=== PATIENT | female | born 1930 | race Caucasian/White ===

== ENCOUNTER 2016-09-05 06:59 | Emergency (ER) | payer OTHER ==
[~2016-09-05] VITALS: Ht 160 cm; Wt 66.1 kg
[~2016-09-05 06:59] MED LIST: BROM0.0911 OPR; CALCTAB5 PO; CLX40 PO; LORA10TA45 PO; MULT-506 PO; OMEP40CA PO; PRED1SUS3 OPR; TYLOTC500 PO
[2016-09-05 07:08] VITALS: TEMP 36.9; Ht 160 cm; Wt 66.1 kg
[2016-09-05 07:13] VITALS: O2SAT 97
[2016-09-05] MEDS ORDERED: SODIUM CHLORIDE 0.9% 1000ML 1,000 ML IV ONE (07:15)
--- NOTE | 2016-09-05 07:25 | EMERGENCY ROOM VISIT NOTE ---
History Report prepared by Carla: Rosana Mcleod Under the Supervision of: Dr. Zeke Mckinney M.D. First contact with patient: 07:03 Stated Complaint: NAUSEA/VOMITING/DIARRHEA History of Present Illness The patient is an 85 year old female who presents to the Emergency Room with complaints of a persistent illness that began last evening. The patient states that she receives Meals on Wheels throughout the week, and states that she ate some Peaches and Cream that she thought tasted strange. Per EMS, the patient had a very active day yesterday and then had laid down to take a nap. EMS reports that the patient woke up last evening and was feeling nauseous and weak. They note that the patient began experiencing vomiting and diarrhea persistently. The patient reports a history of MS and colon cancer. Per EMS the patient had fallen this morning while walking to her bathroom. The patient notes right foot pain due to her fall. The patient denies any fever, abdominal pain, chills, or diaphoresis. EMS reports that they gave the patient 500 mls of fluid and 4 mg of Zofran. Source of History: patient, EMS Onset: last evening Position: other (global) Quality: other (illness) Timing: other (persistent) Associated Symptoms: + diarrhea, + nausea, + vomiting, No abdominal pain, No chills, No diaphoresis, No fevers Note: Associated Symptoms: fall, right foot pain. Review of Systems All systems have been listed, reviewed, and are negative other than those previously mentioned. Please see Additional Medical History Sheet. Past Medical & Surgical Medical Problems: (1) Benign hypertension (2) Cholangitis (3) Choledocholithiasis (4) Chronic back pain (5) Gastroesophageal reflux disease (6) Multiple sclerosis (7) Pancreatitis Surgical Problems: (1) Status post cholecystectomy Family History FH: cancer Social History Smoking Status: Never Smoker Drug Use: none Marital Status: Housing Status: lives with family Occupation Status: retired Current/Historical Medications Scheduled Bromfenac Sodium (Ophth) (Bromfenac), 1 DROPS OPR BID Calcium (Caltrate), 600 MG PO QAM Citalopram (Citalopram Hydrobromide), 1 TAB PO QAM Multivitamin (Multivitamin), 1 TAB PO QAM Omeprazole (Prilosec), 40 MG PO QAM Prednisolone Acetate 1% Oph (Pred Forte 1% Oph), 1 DROP OPR BID Sulfa/Trimethoprim (Bactrim Ds 800MG/160MG), 1 TAB PO BID Scheduled PRN Acetaminophen (Tylenol), 2 TAB PO Q8H PRN for Pain Loratadine Odt (Claritin Reditab Odt), 10 MG PO DAILY PRN for ALLERGIES Ondansetron Hcl (Zofran), 4 MG PO Q8H PRN for Nausea Allergies Coded Allergies: Cat Dander (Unverified Allergy, Unknown, RUNNY NOSE; ITCHY, WATERY EYES, ) Penicillins (Unverified Allergy, Unknown, UNKNOWN, 09/05/16) Physical Exam Vital Signs Date Time Temp Pulse Resp B/P Pulse Ox O2 Delivery O2 Flow Rate FiO2 09/05/16 10:30 139/84 09/05/16 09:30 97 18 125/67 97 Room Air 09/05/16 08:36 98 19 129/ 97 Room Air 09/05/16 07:13 97 Room Air 09/05/16 07:08 101 09/05/16 07:08 36.9 104 20 161/92 97 Room Air Physical Exam GENERAL: Patient awake, alert, oriented x 3. Patient follows commands. Patient does not appear toxic. Patient is adequately hydrated and well- nourished. SKIN: No erythema, pallor, cyanosis or rash HEENT: Normal head, pupils equal, reactive to light and accommodation. Hearing aids removed, no signs of infection in the ears. Oral cavity and posterior pharynx appear normal. Neck: Without adenopathy, no neck vein distention. LUNGS: Clear to auscultation. No wheezes, no rales, no rhonchi. HEART: No murmurs. No gallops. No rubs ABDOMEN: No masses, no rebound, no hepatomegaly or splenomegaly. EXTREMITIES:Slight swelling to the lateral malleolus of the right ankle with slight tenderness. No pedal or pretibial edema. No calf or thigh tenderness. NEUROLOGIC: Cranial nerves II-XII within normal limits. No gross motor sensory function deficits. Medical Decision & Procedures ER Provider Diagnostic Interpretation: X ray results are stated below per my interpretation and the radiologist's interpretation. RIGHT ANKLE 3 VIEWS HISTORY: Right ankle pain. fell Right COMPARISON: None. FINDINGS: There is no fracture or dislocation. Mild soft tissue swelling. The bones are osteopenic. IMPRESSION: No fractures. Electronically signed by: Diego Blair M.D. 09/05/2016 7:54 AM Dictated Date/Time: 09/05/2016 7:53 AM Laboratory Results 09/05/16 06:32 09/05/16 06:32 Test 09/05/16 06:32 09/05/16 08:00 Red Blood Count 4.87 M/uL (4.2-5.4) Mean Corpuscular Volume 87.7 fL (80-100) Mean Corpuscular Hemoglobin 30.4 pg (25-34) Mean Corpuscular Hemoglobin Concent 34.7 g/dl (32-36) RDW Standard Deviation 44.1 fL (36.4-46.3) RDW Coefficient of Variation 13.7 % (11.5-14.5) Mean Platelet Volume 9.8 fL (7.4-10.4) Anion Gap 9.0 mmol/L (3-11) Est Creatinine Clear Calc Drug Dose 43.2 ml/min Estimated GFR () 70.4 Estimated GFR (Non- 60.7 BUN/Creatinine Ratio 20.5 (10-20) Calcium Level 9.3 mg/dl (8.5-10.1) Urine Color YELLOW Urine Appearance CLEAR (CLEAR) Urine pH 7.0 (4.5-7.5) Urine Specific [place] 1.015 (1.000-1.030) Urine Protein NEG (NEG) Urine Glucose (UA) NEG (NEG) Urine Ketones NEG (NEG) Urine Occult Blood 1+ (NEG) Urine Nitrite POS (NEG) Urine Bilirubin NEG (NEG) Urine Urobilinogen NEG (NEG) Urine Leukocyte Esterase SMALL (NEG) Urine WBC (Auto) 5-10 /hpf (0-5) Urine RBC (Auto) 5-10 /hpf (0-4) Urine Hyaline Casts (Auto) 1-5 /lpf (0-5) Urine Epithelial Cells (Auto) >30 /lpf (0-5) Urine Bacteria (Auto) 4+ (NEG) Laboratory results as stated above per my review. Medications Administered Medications (Trade) Dose Ordered Sig/Elisabet Route Start Time Stop Time Status Last Admin Dose Admin Sodium Chloride (Nss 1000ml) 1,000 ml @ 1,000 mls/hr Q1H ONCE IV 09/05/16 07:15 09/05/16 08:14 DC 09/05/16 07:15 1,000 MLS/HR Ondansetron HCl (Zofran Odt) 4 mg ONE ONCE SL 09/05/16 12:00 09/05/16 12:01 DC 09/05/16 11:59 4 MG ED Course 0700: Past medical records reviewed. The patient was evaluated in room A2. A complete history and physical examination was performed. 0715: Ordered Sodium Chloride 1000 ml @ 1000 mls/hr IV. 1042: I reevaluated the patient and she is resting comfortably. I discussed the exam findings and I discussed the treatment plan. She verbalized complete understanding and agreement. She is ready to go home. Medical Decision Nurses notes reviewed. Medical history sheet reviewed. Differential diagnosis includes but is not limited to: acute gastroenteritis, dehydration, metabolic disorder, right ankle sprain. Labs and urinalysis were obtained. Please see above. The patient appears to have a urinary tract infection. X-rays of the ankle do not reveal any acute fracture dislocation or subluxation. The patient was given IV fluids to rehydrate her. She felt better. The patient appears to have some viral illness associated with the nausea and vomiting. This may also be related to the urinary tract infection. The patient will be discharged with Bactrim and Zofran. Impression Primary Impression: Nausea and vomiting Additional Impressions: Urinary tract infection, Ankle sprain Scribe Attestation The scribe's documentation has been prepared under my direction and personally reviewed by me in its entirety. I confirm that the note above accurately reflects all work, treatment, procedures, and medical decision making performed by me. Departure Information Dispostion Home / Self-Care Prescriptions Ondansetron Hcl (ZOFRAN) 4 Mg Tab 4 MG PO Q8H Y for Nausea, #10 TAB Prov: Zeke Mckinney M.D. 09/05/16 Sulfa/Trimethoprim (Bactrim Ds 800MG/160MG) Tab 1 TAB PO BID for 5 Days, #10 TAB Prov: Zeke Mckinney M.D. 09/05/16 Referrals May Novak D.OAnthony (PCP) Forms HOME CARE DOCUMENTATION FORM, IMPORTANT VISIT INFORMATION Patient Instructions A Signature Page, ED UTI Cystitis Female, My [facility] Additional Instructions Take 1 tablet of Bactrim twice a day for 5 days. Drink extra fluids. Take 1 Zofran every 4 hours as needed for nausea. Follow-up with your family physician within the next 10 days. Return here sooner if your symptoms worsen.
[2016-09-05 07:28] LABS: HEMATOCRIT 42.7 % (37-47); MEAN CELL VOLUME 87.7 fL (80-100); MEAN CORPUSCULAR HEMOGLOBIN 30.4 pg (25-34); MEAN CORPUSCULAR HGB CONC 34.7 g/dl (32-36); MEAN PLATELET VOLUME 9.8 fL (7.4-10.4); PLATELET COUNT 342 K/uL (130-400); RED BLOOD COUNT 4.87 M/uL (4.2-5.4); WHITE BLOOD COUNT 15.36 K/uL (4.8-10.8)
[2016-09-05 07:41] LABS: BUN/CREATININE RATIO 20.5 (10-20); CALCIUM 9.3 mg/dl (8.5-10.1); CREATININE 0.87 mg/dl (0.60-1.20); POTASSIUM 3.5 mmol/L (3.5-5.1)
--- NOTE | 2016-09-05 07:56 | DIAGNOSTIC IMAGING REPORT ---
RIGHT ANKLE 3 VIEWS HISTORY: Right ankle pain. fell Right COMPARISON: None. FINDINGS: There is no fracture or dislocation. Mild soft tissue swelling. The bones are osteopenic. IMPRESSION: No fractures. Electronically signed by: Diego Blair M.D. 09/05/2016 7:54 AM Dictated Date/Time: 09/05/2016 7:53 AM
[2016-09-05 08:21] LABS: URINE APPEARANCE CLEAR (CLEAR); URINE BILIRUBIN NEG (NEG); URINE COLOR YELLOW; URINE EPITHELIAL CELL AUTO >30 /lpf (0-5); URINE NITRITE POS (NEG); URINE SPECIFIC GRAVITY 1.015 (1.000-1.030); UROBILINOGEN NEG (NEG); ZZUR CULT IF INDIC CLEAN CATCH YES
[2016-09-05 08:24] LABS: MANUAL MICROSCOPIC REQUIRED? NO; REVIEW REQ? NO
[2016-09-05 09:30] VITALS: PULSE 97; O2SAT 97
[2016-09-05 10:30] VITALS: BP 139/84
[2016-09-05] MEDS ORDERED: ONDA4TAB46 PO (10:37)
[2016-09-05] MEDS ORDERED: SULF800T23 PO (10:37)
[2016-09-05] MEDS ORDERED: ONDANSETRON 4MG OD TAB SL ONE (12:00)
--- NOTE | 2016-09-07 14:36 | Pharmacy Progress Note ---
ED Pharmacist Culture FollowUp Date of Service: Sep 07, 2016. Patient was sent home with a prescription for Bactrim DS 1 PO BID x 5 days, which should cover the Citrobacter freundii complex growing from the patient's URINE culture from 09/05/16. No action required.
[2016-09-24] MEDS ORDERED: NRN300 PO (13:05)
[2016-09-24] MEDS ORDERED: RXC5 PO (13:05)
[2016-09-24] MEDS ORDERED: VALA1TAB31 PO (13:05)
== END 2016-09-05 10:49 | disposition home or self-care (01) ==
LOC: EDBD 06:59 → C.EDA 07:03
DX: R11.2 Nausea with vomiting, unspecified (principal); N39.0 Urinary tract infection, site not specified; S93.401A Sprain of unspecified ligament of right ankle, initial encounter; W19.XXXA Unspecified fall, initial encounter; Y92.019 Unspecified place in single-family (private) house as the place of occurrence of the external cause; G35 Multiple sclerosis; Z85.038 Personal history of other malignant neoplasm of large intestine; I10 Essential (primary) hypertension; K21.9 Gastro-esophageal reflux disease without esophagitis; Z80.9 Family history of malignant neoplasm, unspecified; Z79.899 Other long term (current) drug therapy

== ENCOUNTER 2016-09-21 21:18 | Inpatient (IN) | payer OTHER ==
[~2016-09-21] VITALS: Ht 160 cm; Wt 63.8 kg
[~2016-09-21 21:18] MED LIST changes: +ONDA4TAB46 PO
[2016-09-21] MEDS ORDERED: CALC600T37 PO (22:04)
[2016-09-21] MEDS ORDERED: OMEP40CA41 PO (22:04)
[2016-09-21] MEDS ORDERED: CITA10TA4 PO (22:04)
[2016-09-21] MEDS ORDERED: ONDANSETRON INJ 2 MG/ML 2 ML VIAL IV STA (22:11)
[2016-09-21] MEDS ORDERED: SODIUM CHLORIDE 0.9% 1000ML 1,000 ML IV STA (22:11)
[2016-09-21] MEDS ORDERED: FENTANYL CITRATE INJ 50 MCG/1 ML 2 ML VIAL IV PRN (22:15)
--- NOTE | 2016-09-21 22:20 | EMERGENCY ROOM VISIT NOTE ---
History Report prepared by Carla: Giovani Plasencia Under the Supervision of: Dr. Taurus Guzmán D.O. First contact with patient: 21:58 Chief Complaint: NAUSEA Stated Complaint: NAUSEA, SIDE, PAIN ,WEAKNESS Nursing Triage Summary: Pt woke up with nausea. Pt stated that she has not thrown up and does not have diarrhea. Yesterday the pt had a chest xray which showed a broken rib on the right side. The pt fell 2 weeks ago and has had pain that she has been taking tylenol for with no relief. The pt stated that she cannot take the pain. Pt also states that she is not peeing and has no appetite. History of Present Illness The patient is an 85 year old female who presents to the Emergency Room with complaints of severe and worsening pain in her right side that began two weeks ago, following a fall. She has been experiencing the pain ever since the fall, but it has become unbearable over the past two days. She went to [facility] yesterday and received an x-ray of her right ribs. There was no displacement, but the physicians told her that she likely fractured some ribs. There is associated chest pain with the rib pain. She did not hit her head during the fall, and currently has no neck pain. She also complains of nausea that began this morning. She has vomited, but has had diarrhea. She has been taking Tylenol for the pain. She denies noticing any blood in her urine. Source of History: patient, family Onset: Two weeks [employer] Position: abdomen (Right Ribs) Symptom Intensity: severe Timing: worsening Associated Symptoms: + chest pain, No neck pain Review of Systems See HPI for pertinent positives & negatives. A total of 10 systems reviewed and were otherwise negative. Past Medical & Surgical Medical Problems: (1) Benign hypertension (2) Cholangitis (3) Choledocholithiasis (4) Chronic back pain (5) Gastroesophageal reflux disease (6) Multiple sclerosis (7) Pancreatitis Surgical Problems: (1) Status post cholecystectomy Family History FH: cancer Social History Smoking Status: Never Smoker Drug Use: none Marital Status: Housing Status: lives with family Occupation Status: retired Current/Historical Medications Scheduled Calcium (Calcium), 600 MG PO QAM Citalopram Hydrobromide (Citalopram Hydrobromide), 10 MG PO QAM Multivitamin (Multivitamin), 1 TAB PO QAM Omeprazole (Prilosec), 40 MG PO DAILYBB Scheduled PRN Acetaminophen (Tylenol), 2 TAB PO Q8H PRN for Pain Loratadine Odt (Claritin Reditab Odt), 10 MG PO DAILY PRN for ALLERGIES Ondansetron Hcl (Zofran), 4 MG PO Q8H PRN for Nausea Allergies Coded Allergies: Cat Dander (Unverified Allergy, Unknown, RUNNY NOSE; ITCHY, WATERY EYES, ) Penicillins (Unverified Allergy, Unknown, UNKNOWN, 09/21/16) Physical Exam Vital Signs Date Time Temp Pulse Resp B/P Pulse Ox O2 Delivery O2 Flow Rate FiO2 09/22/16 00:30 98 18 125/73 96 Room Air 09/21/16 23:05 102 18 160/110 96 Room Air 09/21/16 22:52 90 09/21/16 21:28 36.9 86 20 138/84 97 Room Air Physical Exam GENERAL: Patient is awake, alert, and somewhat anxious appearing. Uncomfortable on exam. EYES: The conjunctivae are clear. The pupils are round and reactive. EARS, NOSE, MOUTH AND THROAT: The nose is without any evidence of any deformity. Mucous membranes are moist tongue is midline NECK: The neck is nontender and supple. RESPIRATORY: Lung sounds are diminished throughout, with splinting respirations noted. Normal respiratory effort is noted there is no evidence of wheezing rhonchi or rales CARDIOVASCULAR: Regular rate and rhythm noted there no murmurs rubs or gallops normal S1 normal S2 GASTROINTESTINAL: The abdomen is soft, but mildly distended. Diffuse tenderness to palpation appreciated, with significant pain in the left lower quadrant. Bowel sounds are present in all quadrants. Abdomen is nontender BACK: No midline tenderness or or step-off noted range of motion in flexion extension as well as rotation no signs of muscle spasm noted MUSCULOSKELETAL/EXTREMITIES: There is no evidence of gross deformity full range of motion is noted in the hips and shoulders SKIN: Pedal edema bilaterally, left greater than right. Left lower extremity is warm to the touch, but there is no evidence of cellulitis noted. There is no obvious evidence of any rash. There are no petechiae, pallor or cyanosis noted. NEUROLOGIC: Patient is awake alert and oriented x3. Medical Decision & Procedures ER Provider Diagnostic Interpretation: X ray results and stated below per my interpretation and radiology interpretation. Other radiology results per my review and radiologist interpretation: CHEST ONE VIEW PORTABLE CLINICAL HISTORY: Fall. Abdominal pain. COMPARISON STUDY: Chest radiograph February 02, 2014. FINDINGS: The patient is rotated. There is no pneumothorax. A small right pleural effusion is noted with hazy right basilar opacity. Cardiac size is normal. There is no evidence of pulmonary edema. IMPRESSION: 1. No pneumothorax. 2. Small right pleural effusion with hazy right lower lung opacity. Electronically signed by: Aden Barraza M.D. 09/21/2016 10:40 PM Dictated Date/Time: 09/21/2016 10:[address] the head chest abdomen and pelvis were obtained in the emergency department. The reports reviewed. Preliminary Findings Only See Final Report For Complete Findings CT HEAD: No ICH, mass effect or skull fracture. Chronic appearing ischemic changes. Sinus disease CT CHEST With Contrast: Axial images only. There is some artifact on this study. Patient was scanned with arms down. No aortic dissection. No pneumothorax. Small to moderate-sized right pleural effusion. Appears of low density. Suspected atelectasis. Hiatal hernia. Contrast in the esophagus may represent reflux. Suspect old sternal fracture. Incidentals include thyroid nodules and left upper lobe nodule image [address] ABDOMEN & PELVIS: Axial images only There is some artifact on this study. Comparison CT abdomen and pelvis 02/02/14. No traumatic intra-abdominal or intrapelvic findings appreciated. Suspect some body wall injury/contusions. No acute fractures. Multiple incidental findings including postop changes with interval bowel resection, interval removal of biliary stent, liver and renal cysts and cholecystectomy. See final report for more detailed discussion of incidentals. Radiologist: Jonathon Vega M.D. Study ready at 00:05 and initial results transmitted at 00:58 Ultrasound of the lower extremities was obtained in the emergency department to rule out DVT. The reports reviewed. Preliminary Findings Only See Final Report For Complete Findings US VENOUS BILATERAL LOWER EXTREMITIES: Limited due to patient's swelling and pain in right lower extremity. No DVT is seen. Right calf veins not visualized. Radiologist: Jonathon Vega M.D. Study ready at 00:25 and initial results transmitted at 00:32 Laboratory Results 09/21/16 22:40 Red Blood Count 4.51, Mean Corpuscular Volume 87.8, Mean Corpuscular Hemoglobin 31.0, Mean Corpuscular Hemoglobin Concent 35.4, Mean Platelet Volume 9.1, Neutrophils (%) (Auto) 74.6, Lymphocytes (%) (Auto) 15.2, Monocytes (%) (Auto) 9.2, Eosinophils (%) (Auto) 0.6, Basophils (%) (Auto) 0.3, Neutrophils # (Auto) 5.77, Lymphocytes # (Auto) 1.18, Monocytes # (Auto) 0.71, Eosinophils # (Auto) 0.05, Basophils # (Auto) 0.02 09/21/16 22:40 Test 09/21/16 22:40 09/22/16 01:09 White Blood Count 7.74 K/uL (4.8-10.8) Red Blood Count 4.51 M/uL (4.2-5.4) Hemoglobin 14.0 g/dL (12.0-16.0) Hematocrit 39.6 % (37-47) Mean Corpuscular Volume 87.8 fL (80-100) Mean Corpuscular Hemoglobin 31.0 pg (25-34) Mean Corpuscular Hemoglobin Concent 35.4 g/dl (32-36) Platelet Count 328 K/uL (130-400) Mean Platelet Volume 9.1 fL (7.4-10.4) Neutrophils (%) (Auto) 74.6 % Lymphocytes (%) (Auto) 15.2 % Monocytes (%) (Auto) 9.2 % Eosinophils (%) (Auto) 0.6 % Basophils (%) (Auto) 0.3 % Neutrophils # (Auto) 5.77 K/uL (1.4-6.5) Lymphocytes # (Auto) 1.18 K/uL (1.2-3.4) Monocytes # (Auto) 0.71 K/uL (0.11-0.59) Eosinophils # (Auto) 0.05 K/uL (0-0.5) Basophils # (Auto) 0.02 K/uL (0-0.2) RDW Standard Deviation 46.1 fL (36.4-46.3) RDW Coefficient of Variation 14.2 % (11.5-14.5) Immature Granulocyte % (Auto) 0.1 % Immature Granulocyte # (Auto) 0.01 K/uL (0.00-0.02) Prothrombin Time 11.3 SECONDS (9.0-12.0) Prothromb Time International Ratio 1.1 (0.9-1.1) Activated Partial Thromboplast Time 21.9 SECONDS (21.0-31.0) Partial Thromboplastin Ratio 0.8 Anion Gap 13.0 mmol/L (3-11) Estimated GFR () 85.6 Estimated GFR (Non- 73.9 BUN/Creatinine Ratio 24.9 (10-20) Calcium Level 9.5 mg/dl (8.5-10.1) Magnesium Level 2.1 mg/dl (1.8-2.4) Total Bilirubin 0.4 mg/dl (0.2-1) Direct Bilirubin 0.1 mg/dl (0-0.2) Aspartate Amino Transf (AST/SGOT) 15 U/L (15-37) Alanine Aminotransferase (ALT/SGPT) 20 U/L (12-78) Alkaline Phosphatase 79 U/L (45-117) Total Creatine Kinase 82 U/L (26-192) Creatine Kinase MB 1.9 ng/ml (0.5-3.6) Creatine Kinase MB Ratio 2.3 (0-3.0) Troponin I < 0.015 ng/ml (0-0.045) Total Protein 7.1 gm/dl (6.4-8.2) Albumin 3.9 gm/dl (3.4-5.0) Lipase 131 U/L (73-393) Urine Color YELLOW Urine Appearance CLEAR (CLEAR) Urine pH 6.0 (4.5-7.5) Urine Specific [place] 1.016 (1.000-1.030) Urine Protein NEG (NEG) Urine Glucose (UA) NEG (NEG) Urine Ketones NEG (NEG) Urine Occult Blood TRACE (NEG) Urine Nitrite NEG (NEG) Urine Bilirubin NEG (NEG) Urine Urobilinogen NEG (NEG) Urine Leukocyte Esterase NEG (NEG) Urine WBC (Auto) 1-5 /hpf (0-5) Urine RBC (Auto) 0-4 /hpf (0-4) Urine Hyaline Casts (Auto) 0 /lpf (0-5) Urine Epithelial Cells (Auto) 10-20 /lpf (0-5) Urine Bacteria (Auto) NEG (NEG) Laboratory results per my review. Medications Administered Medications (Trade) Dose Ordered Sig/Elisabet Route Start Time Stop Time Status Last Admin Dose Admin Sodium Chloride (Nss 1000ml) 1,000 ml @ 125 mls/hr Q8H STAT IV 09/21/16 22:11 09/22/16 06:10 09/21/16 23:01 125 MLS/HR Fentanyl Citrate (Fentanyl Inj) 50 mcg Q1H PRN IV 09/21/16 22:15 10/05/16 22:14 09/21/16 23:03 50 MCG Ondansetron HCl (Zofran Inj) 4 mg NOW STAT IV 09/21/16 22:11 09/21/16 22:15 DC 09/21/16 23:02 4 MG ECG Indication: abdominal pain Rate (beats per minute): 97 Rhythm: normal sinus Findings: no acute ischemic change, no ectopy Comparison ECG Date: 02/03/2016 Change: no significant change ED Course 2205: The patient was evaluated in room B7. A complete history and physical examination were performed. 2211: Ordered Zofran 4 mg IV, Sodium Chloride 1000 mL @ 125 mL/hr IV. 2215: Ordered Fentanyl 50 mcg IV. 2349: I reevaluated the patient at this time, she is still experiencing her rib pain 0012: I checked on the patient at this time, she states her pain is relieved slightly. 0136: I discussed the case with Dr. Griss[facility] Hospitalist, he will evaluate the patient for further treatment. Medical Decision The patient's history was concerning for traumatic injury Differential diagnosis: Etiologies such as fracture, dislocation, intra-abdominal, pneumothorax, intrathoracic , intracranial, neurologic, as well as other traumatic pathologies were entertained. Nursing notes reviewed. The patient is an 85-year-old female who presented to the emergency department for an evaluation of right-sided rib pain and right-sided abdominal pain. The patient had a fall a few weeks ago and landed on her walker. She had continued pain ever since that time. She was seen by her primary care physician but x- rays did not show anything definite. She had significant pain on physical exam so CTs were ordered to evaluate for thoracic or intra-abdominal trauma. I discussed the patient's laboratory radiographic studies with her. She was treated with IV fluids IV pain medicine and IV antiemetics. On subsequent reevaluation she was not feeling significantly improved. I discussed her case with the on-call [facility] hospitalist group. They have agreed to evaluate the patient in the emergency department for further management and disposition. Consults Time Called: [phone] Consulting Physician: Dr. Praveena Shaver Returned Call: [phone] I discussed the case with Dr. Praveena Shaver, he will evaluate the patient for further treatment. Impression Primary Impression: Fall Additional Impressions: Contusion of right chest wall Contusion of abdominal wall Pleural effusion, right Scribe Attestation The scribe's documentation has been prepared under my direction and personally reviewed by me in its entirety. I confirm that the note above accurately reflects all work, treatment, procedures, and medical decision making performed by me. Departure Information Dispostion Being Evaluated By Hospitalist Referrals May Novak D.O. (PCP) Patient Instructions My [facility] Problem Qualifiers Primary Impression: Fall Encounter type: initial encounter Qualified Codes: W19.XXXA - Unspecified fall, initial encounter Additional Impressions: Contusion of right chest wall Encounter type: initial encounter Qualified Codes: S20.211A - Contusion of right front wall of thorax, initial encounter Contusion of abdominal wall Encounter type: initial encounter Qualified Codes: S30.1XXA - Contusion of abdominal wall, initial encounter
[2016-09-21] MEDS ORDERED: OPTIRAY 320 IV PRN (22:30)
--- NOTE | 2016-09-21 22:42 | DIAGNOSTIC IMAGING REPORT ---
CHEST ONE VIEW PORTABLE CLINICAL HISTORY: Fall. Abdominal pain. COMPARISON STUDY: Chest radiograph February 02, 2014. FINDINGS: The patient is rotated. There is no pneumothorax. A small right pleural effusion is noted with hazy right basilar opacity. Cardiac size is normal. There is no evidence of pulmonary edema. IMPRESSION: 1. No pneumothorax. 2. Small right pleural effusion with hazy right lower lung opacity. Electronically signed by: Aden Barraza M.D. 09/21/2016 10:40 PM Dictated Date/Time: 09/21/2016 10:35 PM
[2016-09-21 22:58] LABS: BASO % 0.3 %; BASO ABS # 0.02 K/uL (0-0.2); COMPLETE YES; EOS % 0.6 %; HEMATOCRIT 39.6 % (37-47); IG% 0.1 %; LYMPH % 15.2 %; LYMPH ABS # 1.18 K/uL (1.2-3.4); MEAN CELL VOLUME 87.8 fL (80-100); MEAN CORPUSCULAR HGB CONC 35.4 g/dl (32-36); MEAN PLATELET VOLUME 9.1 fL (7.4-10.4); MONO % 9.2 %; NEUT % 74.6 %; PLATELET COUNT 328 K/uL (130-400); RED BLOOD COUNT 4.51 M/uL (4.2-5.4); WHITE BLOOD COUNT 7.74 K/uL (4.8-10.8)
[2016-09-21 23:14] LABS: INR 1.1 (0.9-1.1); PARTIAL THROMBOPLASTIN RATIO 0.8; PROTHROMBIN TIME (PATIENT) 11.3 SECONDS (9.0-12.0)
[2016-09-21 23:16] LABS: ALT/SGPT 20 U/L (12-78); BLOOD UREA NITROGEN 18 mg/dl (7-18); BUN/CREATININE RATIO 24.9 (10-20); CALCIUM 9.5 mg/dl (8.5-10.1); CARBON DIOXIDE 22 mmol/L (21-32); CHLORIDE 102 mmol/L (98-107); CREATININE 0.74 mg/dl (0.60-1.20); GLUCOSE 101 mg/dl (70-99); MAGNESIUM 2.1 mg/dl (1.8-2.4); POTASSIUM 3.6 mmol/L (3.5-5.1); SODIUM 137 mmol/L (136-145)
[2016-09-21 23:20] LABS: ALKALINE PHOSPHATASE 79 U/L (45-117); AST/SGOT 15 U/L (15-37); CKMB/CK RATIO 2.3 (0-3.0)
[2016-09-22 01:25] LABS: URINE APPEARANCE CLEAR (CLEAR); URINE BILIRUBIN NEG (NEG); URINE COLOR YELLOW; URINE NITRITE NEG (NEG); URINE SPECIFIC GRAVITY 1.016 (1.000-1.030); UROBILINOGEN NEG (NEG)
[2016-09-22 01:27] LABS: MANUAL MICROSCOPIC REQUIRED? NO; REVIEW REQ? NO
[2016-09-22] MEDS ORDERED: ACETAMINOPHEN 325 MG TAB PO PRN (02:45)
[2016-09-22 03:36] VITALS: O2SAT 95
[2016-09-22 04:05] VITALS: Ht 160 cm; Wt 63.8 kg
[2016-09-22 04:15] VITALS: BP 152/78; PULSE 103; TEMP 36.9; O2SAT 96
[2016-09-22] MEDS ORDERED: LORATADINE 10 MG TAB PO PRN (05:45)
--- NOTE | 2016-09-22 06:15 | History and Physical ---
History & Physical Date & Time of Service: Sep 22, 2016 at ~ 02:30 . Chief Complaint: chest pain . Primary Care Physician: May Novak D.O. . History of Present Illness Source: patient, clinic records, hospital records 85 YO female followed by Dr. May Novak. History of colon Ca, multiple sclerosis, and other problems noted below. Her about 6 months ago. She has been able to stay in her home despite her disabilities related to her MS. About 2 weeks she developed diarrhea, generalized weakness, and fell. She suffered right foot pain secondary to the fall and was evaluated in the ED. No other apparent injuries. X-rays of right foot and ankle did not show any fractures or dislocations. Seen in clinic on 09/17 for pain and swelling of her left foot. X-rays of left foot demonstrated fractures of the proximal phalanges of the 2nd and 3rd toes as well as fracture of the the metatarsal. Developed right-sided lower chest / upper abdominal pain after the fall, but it worsened several days ago. Also noted pain and swelling of her left foot. Chest pain worse with movement of deep inspirations; it did not radiate. Intensity of pain described as severe. She tried Tylenol at home without relief. [place] somewhat SOB. No associated fever or cough. Seen in clinic on 09/20; X-rays of ribs did not reveal any fractures. . Past Medical/Surgical History Chronic Medical Problems: (1) Benign hypertension Status: Chronic (4) Chronic back pain Status: Chronic (5) Gastroesophageal reflux disease Status: Chronic (6) History of cholelithiasis Status: Chronic (7) History of colon cancer Permanent Comment: diagnosed 2014, s/p resection Status: Chronic (8) History of pancreatitis Status: Chronic (9) Multiple sclerosis Status: Chronic Surgical Problems: (1) Status post cholecystectomy Status: Chronic (2) Status post partial resection of colon Permanent Comment: colon Ca, s/p resection 2014 Status: Chronic . Family History SON FH: cancer (? primary) Social History Smoking Status: Never Smoker Drug Use: none Marital Status: , Occupational Status: retired Immunizations History of Influenza Vaccine: Yes History of Tetanus Vaccine?: No History of Pneumococcal: Yes Pneumococcal Date: Dec 13, 2012 History of Hepatitis B Vaccine: No Multi-Drug Resistant Organisms History of MDRO: No Allergies Coded Allergies: Cat Dander (Unverified Allergy, Unknown, RUNNY NOSE; ITCHY, WATERY EYES, ) Penicillins (Unverified Allergy, Unknown, UNKNOWN, 09/21/16) Home Medications Scheduled Calcium (Calcium), 600 MG PO QAM Citalopram Hydrobromide (Citalopram Hydrobromide), 10 MG PO QAM Multivitamin (Multivitamin), 1 TAB PO QAM Omeprazole (Prilosec), 40 MG PO DAILYBB Scheduled PRN Acetaminophen (Tylenol), 2 TAB PO Q8H PRN for Pain Loratadine Odt (Claritin Reditab Odt), 10 MG PO DAILY PRN for ALLERGIES Ondansetron Hcl (Zofran), 4 MG PO Q8H PRN for Nausea Review of Systems Constitutional: No chills, No fever, No weight loss Eyes: No diplopia, No worsening of vision ENT: + hearing loss, + nasal symptoms Respiratory: + problem reported (as noted above) Cardiovascular: + problem reported (no anginal symptoms), No edema Abdomen: + nausea, No GI bleeding, No constipation, No diarrhea, No pain, No vomiting Musculoskeletal: + joint pain Genitourinary - Female: + urinary incontinence, No dysuria, No hematuria Neurologic: + weakness (chronic lower extremity weakness due to MS) Endocrine: No excessive thirst, No excessive urination Hematologic / Lymphatic: No abnormal bleeding/bruising, No swollen lymph nodes Integumentary: + itch, No new/changing skin lesions, No rash Allergic / Immunologic: + pet sensitivities Physical Exam Vital Signs Date Time Temp Pulse Resp B/P Pulse Ox O2 Delivery O2 Flow Rate FiO2 09/22/16 04:15 36.9 103 16 152/78 96 Room Air 09/22/16 04:05 Room Air 09/22/16 04:05 Room Air 09/22/16 03:36 100 18 161/106 95 Room Air 09/22/16 02:18 95 18 149/86 96 Room Air 09/22/16 00:30 98 18 125/73 96 Room Air 09/21/16 23:05 102 18 160/110 96 Room Air 09/21/16 22:52 90 09/21/16 21:28 36.9 86 20 138/84 97 Room Air General Appearance: WD/WN, + moderate distress (with movement) Head: normocephalic, atraumatic Eyes: normal inspection, PERRL, EOMI, sclerae normal, + pertinent finding ( conjunctivae pink) ENT: normal ENT inspection, pharynx normal, + pertinent finding (hard of hearing) Neck: supple, no adenopathy, thyroid normal, no JVD, trachea midline Respiratory/Chest: normal breath sounds, no respiratory distress, no accessory muscle use, + decreased breath sounds (right base) Cardiovascular: regular rate, rhythm, no edema, no gallop, no JVD, + systolic murmur (high pitched systolic murmur III/ LSB - apex) Abdomen/GI: normal bowel sounds, non tender, soft, no organomegaly Back: normal inspection Extremities/Musculoskelatal: normal inspection, no calf tenderness, normal capillary refill, no pedal edema Neurologic/Psych: communications writer II-XII nml as tested (PERRL, EOMI), alert, normal mood/ affect, oriented x 3, + motor weakness (bilateral lower extremity weakness ~ 3/5 ), + babinski (bilat) Skin: normal color, warm/dry, + rash (clustered palules extending from lower thoracic spine anterolaterally to right abdomen) Lymphatic: no adenopathy Diagnostics Laboratory Results Results Past 24 Hours Test 09/21/16 22:40 09/22/16 01:09 Range/Units White Blood Count 7.74 4.8-10.8 K/uL Red Blood Count 4.51 4.2-5.4 M/uL Hemoglobin 14.0 12.0-16.0 g/dL Hematocrit 39.6 37-47 % Mean Corpuscular Volume 87.8 80-100 fL Mean Corpuscular Hemoglobin 31.0 25-34 pg Mean Corpuscular Hemoglobin Concent 35.4 32-36 g/dl Platelet Count 328 130-400 K/uL Mean Platelet Volume 9.1 7.4-10.4 fL Neutrophils (%) (Auto) 74.6 % Lymphocytes (%) (Auto) 15.2 % Monocytes (%) (Auto) 9.2 % Eosinophils (%) (Auto) 0.6 % Basophils (%) (Auto) 0.3 % Neutrophils # (Auto) 5.77 1.4-6.5 K/uL Lymphocytes # (Auto) 1.18 1.2-3.4 K/uL Monocytes # (Auto) 0.71 0.11-0.59 K/uL Eosinophils # (Auto) 0.05 0-0.5 K/uL Basophils # (Auto) 0.02 0-0.2 K/uL RDW Standard Deviation 46.1 36.4-46.3 fL RDW Coefficient of Variation 14.2 11.5-14.5 % Immature Granulocyte % (Auto) 0.1 % Immature Granulocyte # (Auto) 0.01 0.00-0.02 K/uL Prothrombin Time 11.3 9.0-12.0 SECONDS Prothromb Time International Ratio 1.1 0.9-1.1 Activated Partial Thromboplast Time 21.9 21.0-31.0 SECONDS Partial Thromboplastin Ratio 0.8 Sodium Level 137 136-145 mmol/L Potassium Level 3.6 3.5-5.1 mmol/L Chloride Level 102 98-107 mmol/L Carbon Dioxide Level 22 21-32 mmol/L Anion Gap 13.0 3-11 mmol/L Blood Urea Nitrogen 18 7-18 mg/dl Creatinine 0.74 0.60-1.20 mg/dl Estimated GFR () 85.6 Estimated GFR (Non- 73.9 BUN/Creatinine Ratio 24.9 10-20 Random Glucose 101 70-99 mg/dl Calcium Level 9.5 8.5-10.1 mg/dl Magnesium Level 2.1 1.8-2.4 mg/dl Total Bilirubin 0.4 0.2-1 mg/dl Direct Bilirubin 0.1 0-0.2 mg/dl Aspartate Amino Transf (AST/SGOT) 15 15-37 U/L Alanine Aminotransferase (ALT/SGPT) 20 12-78 U/L Alkaline Phosphatase 79 45-117 U/L Total Creatine Kinase 82 26-192 U/L Creatine Kinase MB 1.9 0.5-3.6 ng/ml Creatine Kinase MB Ratio 2.3 0-3.0 Troponin I < 0.015 0-0.045 ng/ml Total Protein 7.1 6.4-8.2 gm/dl Albumin 3.9 3.4-5.0 gm/dl Lipase 131 73-393 U/L Urine Color YELLOW Urine Appearance CLEAR CLEAR Urine pH 6.0 4.5-7.5 Urine Specific Ryan 1.016 1.000-1.030 Urine Protein NEG NEG Urine Glucose (UA) NEG NEG Urine Ketones NEG NEG Urine Occult Blood TRACE NEG Urine Nitrite NEG NEG Urine Bilirubin NEG NEG Urine Urobilinogen NEG NEG Urine Leukocyte Esterase NEG NEG Urine WBC (Auto) 1-5 0-5 /hpf Urine RBC (Auto) 0-4 0-4 /hpf Urine Hyaline Casts (Auto) 0 0-5 /lpf Urine Epithelial Cells (Auto) 10-20 0-5 /lpf Urine Bacteria (Auto) NEG NEG Diagnostic Radiology CHEST ONE VIEW PORTABLE IMPRESSION: 1. No pneumothorax. 2. Small right pleural effusion with hazy right lower lung opacity. Electronically signed by: Aden Barraza M.D. 09/21/2016 10:[address] NONCONTRAST Impression: No acute intracranial abnormality. Atrophy and microvascular ischemic changes. Improvement in the left maxillary sinus opacification. Electronically signed by: Diego Blair M.D. 09/22/2016 7:[address] OF THE CHEST WITH IV CONTRAST IMPRESSION: 1. Manubrial fracture, possibly old. Please correlate with patient's site of pain 2. Small to moderate right pleural effusion 3. No evidence of pneumothorax. No evidence of pulmonary contusion 4. Multinodular thyroid gland 5. 23 mm cystic structure within the right axilla 6. Hiatal hernia 7. Hepatic and left renal cysts 8. 4 mm left upper lobe pulmonary nodule Please refer to below summary of Fleischner criteria recommendations for follow-up of incidental CT nodules (Mignon Patino, Guidelines for management of small pulmonary nodules detected on CT scans: A statement from the Fleischner Society, Radiology 237: [phone].) Electronically signed by: Nahun Crum M.D. 09/22/2016 7:51 AM ABDOMEN AND PELVIS CT WITH IV AND ORAL CONTRAST IMPRESSION: 1. No acute intra-abdominal abnormality. 2. Hepatic and left renal cysts are again noted. 3. Cholecystectomy. 4. No bowel wall thickening or obstruction. 5. Small right pleural effusion. 6. Moderate hiatus hernia. Electronically signed by: Diego Blair M.D. 09/22/2016 8:38 AM ULTRASOUND VENOUS DOPPLER LWR EXT BILA IMPRESSION: 1. Limited study with nonvisualization the right calf veins. No DVT identified. Electronically signed by: Nahun Crum M.D. 09/22/2016 6:40 AM . EKG EKG performed at 22:26 reviewed and demonstrated NSR at 99 / minute, no acute ST or T-wave abnormalities. . Impression Assessment and Plan RIGHT-SIDED CHEST PAIN Recent fall. No apparent rib fractures per plain films in clinic and preliminary CT chest report. Consider pulmonary embolism, but less likely with neg venous duplex lower extremities. Consider repeat CT chest with CTA protocol for PE if ongoing concerns. Pain probably secondary to H zoster- management as discussed below. RIGHT PLEURAL EFFUSION CT demonstrates moderate right pleural effusion. Fell 2 weeks ago. No fever or leukocytosis; doubt infectious process. History of colon Ca, consider malignant effusion. Consider pulmonary embolism as discussed above. Consult Thoracic Surgery for recommendations. PROBABLE H ZOSTER Rash extending from midline overlying lower thoracic spine to anterolateral abdomen ~ T 10 distribution. Experiencing severe pain. Appearance consistent with H zoster. Rx with valacyclovir. Pain management with gabapentin and other analgesics as necessary. HEART MURMUR High-pitched systolic murmur heart at LSB + apex. History of rheumatic fever. May have aortic or mitral stenosis. Check echo. HISTORY COLON CA S/P resection. MULTIPLE SCLEROSIS Remains relatively independent, but functional status may be compromised by recent fracture left foot, severe right chest wall pain, etc. PT / OT evals. ABNORMAL CT FINDINGS Multiple abnormalities noted on CT imaging as summarized above. Will need follow-up as clinically indicated. VTE PROPHYLAXIS No anticoagulants at this time due to pleural effusion and possible need for thoracentesis. SCD's. RESUSCITATION STATUS Discussed with patient. She has a living will. She would like resuscitation attempted in the event of a cardiopulmonary arrest if there is a reasonable chance of a meaningful recovery, but does not want prolonged extraordinary measures if prognosis is poor. Therefore, code status = "Level 1" (full resuscitation). DISPOSITION May need skilled care or rehab. Consult Senior Applications Architect. Medical follow-up with Dr. May Novak. . Advanced Directives Existing Advance Directive: Yes Existing Living Will: Yes Existing Power of Bolt Header: Yes VTE Prophylaxis VTE Risk Assessment Done? Y/N: Yes Risk Level: Moderate Given or contraindicated: SCD's
--- NOTE | 2016-09-22 06:42 | DIAGNOSTIC IMAGING REPORT ---
ULTRASOUND VENOUS DOPPLER LWR EXT BILA CLINICAL HISTORY: Bilateral lower extremity pain and swelling COMPARISON STUDY: No previous studies for comparison. FINDINGS: The right calf veins could not be visualized due to extensive swelling. No intraluminal thrombus was visualized. The common femoral, superficial femoral, and popliteal veins were patent bilaterally. The proximal trifurcation veins of the left leg appeared patent as visualized. IMPRESSION: 1. Limited study with nonvisualization the right calf veins. No DVT identified. Electronically signed by: Nahun Crum M.D. 09/22/2016 6:40 AM Dictated Date/Time: 09/22/2016 6:39 AM
--- NOTE | 2016-09-22 07:09 | DIAGNOSTIC IMAGING REPORT ---
HEAD CT NONCONTRAST CT DOSE: HISTORY: fall TECHNIQUE: Multiaxial CT images of the head were performed without the use of intravenous contrast. Automated exposure control was utilized for this study. Comparison: Head CT 03/02/2013. Findings: Partially opacified left maxillary sinus which has improved. The mastoid air cells are clear. The calvarium and skull base are intact. There is no mass, hematoma, midline shift, acute infarct. White matter hypodensity is nonspecific but suggestive of microvascular ischemic change. The ventricles and sulci demonstrate mild age-related involutional changes. Impression: No acute intracranial abnormality. Atrophy and microvascular ischemic changes. Improvement in the left maxillary sinus opacification. Electronically signed by: Diego Blair M.D. 09/22/2016 7:07 AM Dictated Date/Time: 09/22/2016 7:05 AM
[2016-09-22 07:41] VITALS: BP 131/69; PULSE 100; TEMP 37; O2SAT 94
--- NOTE | 2016-09-22 07:53 | DIAGNOSTIC IMAGING REPORT ---
CT OF THE CHEST WITH IV CONTRAST CLINICAL HISTORY: Chest pain status post trauma COMPARISON STUDY: Chest x-ray dated 09/21/2016 TECHNIQUE: Following the IV administration of 92 mL of Optiray-320, CT of the thorax was performed from the thoracic inlet to the lung bases. Images are reviewed in the axial, sagittal, and coronal planes. IV contrast was administered without complication. CT DOSE: 1148.94 mGy.cm FINDINGS: Thyroid: There is a multinodular thyroid gland. Largest nodules located on the right measuring 25 mm. Thoracic aorta: The thoracic aorta is normal in course and caliber, noting standard 3-vessel arch anatomy. No aneurysm or dissection is seen. Pulmonary vasculature: The pulmonary trunk is normal in caliber. There are no central filling defects identified to suggest pulmonary embolus. Note that this examination was not protocoled for the evaluation of pulmonary emboli. HEART: The heart is normal in size and configuration, without pericardial effusion. Lungs and pleural spaces: There is a small moderate right pleural effusion. No pneumothorax is visualized. There are right basilar atelectatic changes. There is a 4 mm left upper lobe pulmonary nodule as visualized in image #[id number] Mediastinum: There is no mediastinal lymphadenopathy. There is no evidence of mediastinal hematoma Norma: Clear. Axilla: There is 23 mm cystic structure within the right axilla. Upper abdomen: There is an upper pole left renal cyst. There is a hiatal hernia. There are multiple hepatic hypodensities, consistent with cysts. Skeletal structures: There are no lytic or blastic osseous lesions. There is a manubrial fracture, possibly old. IMPRESSION: 1. Manubrial fracture, possibly old. Please correlate with patient's site of pain 2. Small to moderate right pleural effusion 3. No evidence of pneumothorax. No evidence of pulmonary contusion 4. Multinodular thyroid gland 5. 23 mm cystic structure within the right axilla 6. Hiatal hernia 7. Hepatic and left renal cysts 8. 4 mm left upper lobe pulmonary nodule Please refer to below summary of Fleischner criteria recommendations for follow-up of incidental CT nodules (Mignon Patino, Guidelines for management of small pulmonary nodules detected on CT scans: A statement from the Fleischner Society, Radiology 237: [phone].) Low Risk Patient: Minimal or no smoking or other known risk factors for malignancy <=4 mm: No follow-up needed. >4-6 mm: Initial follow-up CT at 12 months; if unchanged, no further follow-up. >6-8 mm: Initial follow-up CT at 6-12 months then at 18-24 months if no change. >8 mm: Follow-up CT at \R\3, 9, 24 months, or PET and/or biopsy. High Risk Patient: History of smoking or other known risk factors <=4 mm: Follow-up at 12 months; if unchanged, no further follow-up. >4-6 mm: Initial follow-up CT at 6-12 months then at 18-24 months if no change. >6-8 mm: Initial follow-up CT at 3-6 months then at 9-12 and 24 months if no change. >8 mm: Same as low risk patient. Note: Nodule size measured as average of length and width. Ground glass or partly solid nodules may require longer follow-up to exclude indolent adenocarcinoma. Electronically signed by: Nahun Crum M.D. 09/22/2016 7:51 AM Dictated Date/Time: 09/22/2016 7:42 AM
[2016-09-22] MEDS ORDERED: INFLUENZA ADMINISTRATION CHARGE ONE (08:00)
[2016-09-22] MEDS ORDERED: INFLUENZA VIRUS QUAD VACCINE 0.5 ML SYR IM. ONE (08:00)
--- NOTE | 2016-09-22 08:40 | DIAGNOSTIC IMAGING REPORT ---
ABDOMEN AND PELVIS CT WITH IV AND ORAL CONTRAST CT DOSE: HISTORY: fall, right sided pain TECHNIQUE: Multiaxial CT images of the abdomen and pelvis were performed following the use of intravenous and oral contrast. COMPARISON STUDY: Abdomen and pelvis CT 02/02/2014. FINDINGS: Moderate hiatus hernia. Small right pleural effusion with associated partial compressive atelectasis of the right lower lobe. No pneumoperitoneum. No pneumatosis. Mild superior endplate compression deformity at L3 is likely old. No acute fractures identified within the visualized osseous structures. The uterus is surgically absent. Normal bladder. Rectosigmoid anastomosis is identified. No pelvic free fluid. Moderate stool within the colon. There is also anastomotic suture material within the right side of the abdomen. No bowel wall thickening or obstruction. No retroperitoneal lymphadenopathy. The spleen, adrenal glands, and pancreas are unremarkable. Cholecystectomy. Hepatic and left renal cysts are again noted. Normal right kidney. No hydronephrosis. Small right hip soft tissue contusions. No evidence for a hematoma. IMPRESSION: 1. No acute intra-abdominal abnormality. 2. Hepatic and left renal cysts are again noted. 3. Cholecystectomy. 4. No bowel wall thickening or obstruction. 5. Small right pleural effusion. 6. Moderate hiatus hernia. Electronically signed by: Diego Blair M.D. 09/22/2016 8:38 AM Dictated Date/Time: 09/22/2016 8:28 AM
[2016-09-22] MEDS ORDERED: PERFLUTREN LIPID MICROSPHERE (DEFINITY) IV ONE (08:50)
[2016-09-22] MEDS: PANTOprazole SOD 40 MG TAB PO SCH (08:51)
[2016-09-22] MEDS: CITALOPRAM 20 MG TAB PO SCH (08:51)
[2016-09-22] MEDS ORDERED: GABAPENTIN 300 MG CAP PO ONE (09:00)
--- NOTE | 2016-09-22 09:03 | Medical Consult ---
Consultation Note Consultation Note Consult Dictated #[id number]
--- NOTE | 2016-09-22 09:39 | CONSULTATION REPORT ---
DATE OF CONSULTATION: 09/22/2016 REASON FOR CONSULTATION: Pleural effusion and pulmonary nodule HISTORY OF PRESENT ILLNESS: This is an 85-year-old female that we were asked to see at the request of Dr. Korey Grissom due to a pleural effusion, pulmonary nodule identified on a chest CT. This patient has a history of multiple sclerosis, but despite this leads a relatively independent lifestyle; however, the patient fell approximately 2 weeks ago. She was seen and evaluated in the Emergency Department, no apparent injuries were noted; however, the patient has since developed some right-sided chest and right upper abdominal discomfort that she says is worse with deep inspirations. She says this has gotten progressively worse, so she represented to the Emergency Department yesterday. In the Emergency Department, the patient had an extensive evaluation including lower extremity venous Dopplers that were negative for DVT. A CT scan of the head that was negative for acute intracranial injuries. A CT scan of the chest that was negative for pneumothorax or pulmonary contusion; however, moderate right pleural effusion was noted. The patient was also found to have a 4 mm nodule of the left upper lobe. The patient has also undergone an abdominal and pelvic CT scan, which was negative for acute intraabdominal injuries. Urinalysis was negative for UTI. A CBC revealed hemoglobin, hematocrit, platelet count and white blood cell count were all within the normal range. Her coagulation studies were within normal range and a partial renal profile showed BUN, creatinine, sodium and potassium were all within the normal range. I visited with the patient at bedside and she said that she did suffer a fall approximately 2 weeks ago as noted above. She denies any head injuries. She denies any blurry vision. She denies any tinnitus or vertigo or epistaxis. She denies any sore throat, neck pain. She does note some right-sided chest pain that is worse with deep inspirations. She denies fever, shakes, or chills. She denies any shortness of breath at this time. She denies any cough or hemoptysis. She denies any recent weight loss. She denies any lower extremity edema. The patient denies any known history of CHF. She also denies any underlying history of malignancy. She denies any nausea, vomiting, but has recently developed diarrhea. She denies any history of DVT or PE. She denies any history of stroke or seizure, but does have a history of multiple sclerosis. At the time of my exam, the patient was resting comfortably in bed. PAST MEDICAL HISTORY: Includes 1. History of colon cancer. 2. Multiple sclerosis. 3. Hypertension. 4. History of choledocholithiasis. 5. History of cholangitis. 6. History of pancreatitis. PAST SURGICAL HISTORY: Includes: 1. Cholecystectomy. 2. History of partial colon resection. ALLERGIES: INCLUDE PENICILLIN. OUTPATIENT MEDICATION REGIMEN: Includes the followin. Tylenol as needed. 2. Calcium 600 mg daily. 3. Celexa 10 mg daily. 4. Claritin as needed. 5. Multivitamin daily. 6. Prilosec 40 mg daily. 7. Zofran as needed. SOCIAL HISTORY: She is a lifetime nonsmoker. FAMILY HISTORY: Positive for cancer. REVIEW OF SYSTEMS: As noted above. PHYSICAL EXAMINATION: VITAL SIGNS: The patient is afebrile with temperature of 37.0, her pulse is 100 and regular, respirations are 16, they are nonlabored. Blood pressure is 131/69, pulse ox 94% on room air. SKIN: Warm with good turgor. GENERAL: The patient was noted to have a vesicular type appearing rash on her back on the right side in the T10 dermatone. HEENT: Head is atraumatic, normocephalic. Eyes, pupils equal, round and reactive to light and accommodation. Extraocular motions are intact. Ears, auditory acuity is grossly intact. Nose, nasal patency was intact. Sinuses are nontender. Mouth is moist without exudates. NECK: Supple. There is no JVD. CARDIOVASCULAR: Regular rate and rhythm. LUNGS: Revealed no rales, rhonchi, wheezing or use of accessory muscles. Breath sounds were noted to be decreased at the right base. ABDOMEN: Soft, nontender. EXTREMITIES: Revealed no cyanosis, clubbing or edema. NEUROLOGIC: Revealed cranial nerves II through XII are grossly intact. No focal deficits are noted. DIAGNOSTIC DATA: As noted above. IMPRESSION: An 85-year-old female status post fall, now with a pleural effusion. PLAN: Will meet with the patient later in the presence of Dr. Leon to determine the best approach to patient's pleural effusion. Based on her history this is likely related to her recent fall. Options would include clinical monitoring, thoracentesis, or PleurX catheter drainage. Drainage of the fluid may prove problematic with probable shingles noted by the above stated rash. The patient was also noted to have a pulmonary nodule as described above and this is approximately 4 mm in size. This can likely be observed with serial CAT scan to see if there is any interval change and there is any increase in size, biopsy can be considered. The patient has been placed on an appropriate regimen of Valtrex for probable shingles noted as stated above. The patient is a level 1 full code.
[2016-09-22 15:41] VITALS: BP 111/67; PULSE 90; TEMP 36.9; O2SAT 95
--- NOTE | 2016-09-22 16:56 | Progress Note ---
Internal Med Progress Note Date of Service: Sep 22, 2016. Provider Documentation: SUBJECTIVE: The patient was seen and examined Feels the same pain right lower chest Other nonspecific symptoms OBJECTIVE: Vital Signs-as noted below Exam: General-NO distress at rest Eyes-Normal ENT-normal Neck-supple Lungs-decreased breath sound at the right base with minimal crackles Heart-Regular,no murmur appreciated Abdomen-Benign,no masses, Extremities-No edema Neuro-AA Lab data as noted below. 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 Experiencing severe pain. Appearance consistent with H zoster. Rx with valacyclovir. Pain management with gabapentin and other analgesics as necessary. H/O Heart Murmur High-pitched systolic murmur precordial History of rheumatic fever. Check ECHO to evaluate HISTORY COLON CA S/P resection. No acute symptoms MULTIPLE SCLEROSIS Remains relatively independent, but functional status may be compromised by recent fracture left foot, severe right chest wall pain, etc. Mobile with wheel chair PT / OT evals. ABNORMAL CT FINDINGS Multiple abnormalities noted on CT imaging as summarized above. Will need follow-up as clinically indicated. VTE PROPHYLAXIS No anticoagulants at this time due to pleural effusion and possible need for thoracentesis. SCD's. RESUSCITATION STATUS Level 1 DISPOSITION May need skilled care or rehab. Consult Residential Team Leader. Medical follow-up with Dr. May Novak. . Vital Signs: Date Time Temp Pulse Resp B/P Pulse Ox O2 Delivery O2 Flow Rate FiO2 09/22/16 15:41 36.9 90 18 111/67 95 Room Air 09/22/16 08:00 Room Air 09/22/16 07:41 37.0 100 16 131/69 94 Room Air 09/22/16 04:15 36.9 103 16 152/78 96 Room Air 09/22/16 04:05 Room Air 09/22/16 04:05 Room Air 09/22/16 03:36 100 18 161/106 95 Room Air 09/22/16 02:18 95 18 149/86 96 Room Air 09/22/16 00:30 98 18 125/73 96 Room Air 09/21/16 23:05 102 18 160/110 96 Room Air 09/21/16 22:52 90 09/21/16 21:28 36.9 86 20 138/84 97 Room Air Lab Results: Results Past 24 Hours Test 09/21/16 22:40 09/22/16 01:09 Range/Units White Blood Count 7.74 4.8-10.8 K/uL Red Blood Count 4.51 4.2-5.4 M/uL Hemoglobin 14.0 12.0-16.0 g/dL Hematocrit 39.6 37-47 % Mean Corpuscular Volume 87.8 80-100 fL Mean Corpuscular Hemoglobin 31.0 25-34 pg Mean Corpuscular Hemoglobin Concent 35.4 32-36 g/dl Platelet Count 328 130-400 K/uL Mean Platelet Volume 9.1 7.4-10.4 fL Neutrophils (%) (Auto) 74.6 % Lymphocytes (%) (Auto) 15.2 % Monocytes (%) (Auto) 9.2 % Eosinophils (%) (Auto) 0.6 % Basophils (%) (Auto) 0.3 % Neutrophils # (Auto) 5.77 1.4-6.5 K/uL Lymphocytes # (Auto) 1.18 1.2-3.4 K/uL Monocytes # (Auto) 0.71 0.11-0.59 K/uL Eosinophils # (Auto) 0.05 0-0.5 K/uL Basophils # (Auto) 0.02 0-0.2 K/uL RDW Standard Deviation 46.1 36.4-46.3 fL RDW Coefficient of Variation 14.2 11.5-14.5 % Immature Granulocyte % (Auto) 0.1 % Immature Granulocyte # (Auto) 0.01 0.00-0.02 K/uL Prothrombin Time 11.3 9.0-12.0 SECONDS Prothromb Time International Ratio 1.1 0.9-1.1 Activated Partial Thromboplast Time 21.9 21.0-31.0 SECONDS Partial Thromboplastin Ratio 0.8 Sodium Level 137 136-145 mmol/L Potassium Level 3.6 3.5-5.1 mmol/L Chloride Level 102 98-107 mmol/L Carbon Dioxide Level 22 21-32 mmol/L Anion Gap 13.0 3-11 mmol/L Blood Urea Nitrogen 18 7-18 mg/dl Creatinine 0.74 0.60-1.20 mg/dl Estimated GFR () 85.6 Estimated GFR (Non- 73.9 BUN/Creatinine Ratio 24.9 10-20 Random Glucose 101 70-99 mg/dl Calcium Level 9.5 8.5-10.1 mg/dl Magnesium Level 2.1 1.8-2.4 mg/dl Total Bilirubin 0.4 0.2-1 mg/dl Direct Bilirubin 0.1 0-0.2 mg/dl Aspartate Amino Transf (AST/SGOT) 15 15-37 U/L Alanine Aminotransferase (ALT/SGPT) 20 12-78 U/L Alkaline Phosphatase 79 45-117 U/L Total Creatine Kinase 82 26-192 U/L Creatine Kinase MB 1.9 0.5-3.6 ng/ml Creatine Kinase MB Ratio 2.3 0-3.0 Troponin I < 0.015 0-0.045 ng/ml Total Protein 7.1 6.4-8.2 gm/dl Albumin 3.9 3.4-5.0 gm/dl Lipase 131 73-393 U/L Urine Color YELLOW Urine Appearance CLEAR CLEAR Urine pH 6.0 4.5-7.5 Urine Specific [place] 1.016 1.000-1.030 Urine Protein NEG NEG Urine Glucose (UA) NEG NEG Urine Ketones NEG NEG Urine Occult Blood TRACE NEG Urine Nitrite NEG NEG Urine Bilirubin NEG NEG Urine Urobilinogen NEG NEG Urine Leukocyte Esterase NEG NEG Urine WBC (Auto) 1-5 0-5 /hpf Urine RBC (Auto) 0-4 0-4 /hpf Urine Hyaline Casts (Auto) 0 0-5 /lpf Urine Epithelial Cells (Auto) 10-20 0-5 /lpf Urine Bacteria (Auto) NEG NEG
--- NOTE | 2016-09-22 19:04 | SURGICAL CONSULTATION ---
DATE OF CONSULTATION: 09/22/2016 HISTORY OF PRESENT ILLNESS: Ms. Shook was seen today at the request of Dr. Korey Grissom. Ms. Shook is interesting. She is 85-year-old with multiple sclerosis but still lives alone and is independent of her activities of daily living. I had a long talk with the patient and her daughter at the bedside. My reason for being consulted is that patient has a right pleural effusion. The patient fell at home and struck her back; however, she has some lesions that appear to possibly be herpes zoster. I have discussed this with Dr. Grissom. X-rays did not show a fracture; however, she did have a right pleural effusion which was rather small actually. She is on room air. The question that is raised is whether or not we should do something about this pleural effusion as it is possible that this is blood. For full details of the consultation, please see [facility]'s consultation. I evaluated Ms. Shook and had a long talk with her daughter and Dr. Grissom and felt that we would proceed with a thoracentesis. On the afternoon of 09/22/2016, I went up to the room to perform this thoracentesis, however, upon performing the bedside ultrasound for localization of a window to place the catheter, I had difficulty. I just did not see a good window and it did not appear that there was much fluid there. At this point, I elected to hold off on this. I had a long talk with the patient and her daughter and explained why. I will follow up with a chest x-ray tomorrow. I would like to thank Dr. Grissom for asking me to see this very nice lady.
[2016-09-22] MEDS: OXYCODONE HCL IR 5 MG TAB (IMMEDIATE RELEASE) PO PRN (21:38)
[2016-09-22 23:00] VITALS: BP 123/75; PULSE 83; TEMP 37.1; O2SAT 94
[2016-09-23 06:09] LABS: HEMATOCRIT 37.4 % (37-47); MEAN CELL VOLUME 88.2 fL (80-100); MEAN CORPUSCULAR HEMOGLOBIN 30.2 pg (25-34); MEAN CORPUSCULAR HGB CONC 34.2 g/dl (32-36); MEAN PLATELET VOLUME 9.3 fL (7.4-10.4); PLATELET COUNT 285 K/uL (130-400); RED BLOOD COUNT 4.24 M/uL (4.2-5.4); WHITE BLOOD COUNT 5.31 K/uL (4.8-10.8)
[2016-09-23] MEDS: OXYCODONE HCL IR 5 MG TAB (IMMEDIATE RELEASE) PO PRN ×2 (06:11→14:03)
[2016-09-23 06:41] LABS: BUN/CREATININE RATIO 19.3 (10-20); CALCIUM 8.8 mg/dl (8.5-10.1); CREATININE 0.7 mg/dl (0.60-1.20); MAGNESIUM 2.1 mg/dl (1.8-2.4); PHOSPHORUS 2.4 mg/dl (2.5-4.9); POTASSIUM 3.7 mmol/L (3.5-5.1)
--- NOTE | 2016-09-23 07:48 | DIAGNOSTIC IMAGING REPORT ---
CHEST ONE VIEW PORTABLE HISTORY: Follow-up pleural effusion COMPARISON: Chest 09/21/2016. FINDINGS: Small right pleural effusion remains unchanged. There is a small hiatus hernia. The heart is normal in size. The left lung is clear. No pneumothorax. No evidence for pulmonary edema. No new focal lung consolidations. IMPRESSION: No change in the small right pleural effusion. Electronically signed by: Diego Blair M.D. 09/23/2016 7:47 AM Dictated Date/Time: 09/23/2016 7:45 AM
[2016-09-23 08:03] VITALS: BP 130/81; PULSE 95; TEMP 36.8; O2SAT 95
[2016-09-23] MEDS: CITALOPRAM 20 MG TAB PO SCH (08:28)
[2016-09-23] MEDS: GABAPENTIN 300 MG CAP PO SCH ×2 (08:28→21:09)
[2016-09-23] MEDS: PANTOprazole SOD 40 MG TAB PO SCH (08:29)
--- NOTE | 2016-09-23 10:03 | SURGERY PROGRESS NOTE ---
DATE: 09/23/2016 HISTORY OF PRESENT ILLNESS: Ms. Shook was seen today. I looked at her back again and it is unclear to me whether these represent shingles or not that may be responding to her treatment. She also has some ecchymosis inferior and superior to this. My clinical impression is that she does have fractured ribs a few interspaces above the skin lesions on her right back. Her lungs sound actually fairly good. As I stated in my note yesterday, I saw very little in the way of fluid on the ultrasound and today's x-ray looks quite good. At this point, I would hold off doing an intervention in her chest due to the fact that she looks so good. In addition, her hemoglobin has been relatively stable. I would follow her with serial x-rays. MASSIEL
--- NOTE | 2016-09-23 14:27 | ECHOCARDIOGRAM REPORT ---
*NOTICE TO RECEIVING LIBERTARIAN AGENCY This information is strictly Confidential and protected under [place] law. [place] law prohibits you from making any further disclosure of this information unless further disclosure is expressly permitted by the written consent of the person to whom it pertains or is authorized by law. A general authorization for the release of medical or other information is not sufficient for this purpose. Hospital accepts no responsibility if the information is made available to any other person, INCLUDING THE PATIENT. Interpretation Summary * Name: ESTELLE SAPP Study Date: 09/22/2016 08:15 AM BP: 152/78 mmHg * Patient Location: C.MSN\S\N382\S\2 HR: 103 * : 1930 (M/d/yyyy) Gender: Female Height: 62 in * Age: 85 yrs Ethnicity: [place] Weight: 140 lb * Ordering Physician: Koery Grissom * Referring Physician: Self, Referred * Performed By: Donna Tanner RDCS * * Reason For Study: Murmurs * BSA: 1.6 m2 * The study was technically adequate. * There is no comparison study available. * -- Conclusions -- * The left ventricle is hyperdynamic. * Ejection Fraction = >70 %. * Aortic valve sclerosis moderate, without significant aortic valvular stenosis. * There is mild tricuspid regurgitation. Procedure Details * A complete two-dimensional transthoracic echocardiogram was performed (2D, M-mode, Doppler and color flow Doppler). * The study was technically difficult. * There were technical limitations due to patient'spoor positioning * The study was technically difficult, but visualization was adequate with the administration of Definity ultrasound contrast. * A contrast injection of Definity was performed to improve assessment of LV function. * Contrast was injected into an intravenous site in the left arm. * One vial of Definity ultrasound contrast was diluted in normal saline to a total volume of 10 ml. A total of '2' ml of solution was administered during imaging. * Lot # [id number] of Definity utilized for procedure. * Expiration date 1DEC17. * The attending nurse who injected the contrast agent was Jeannie Rubalcava RN. Left Ventricle * The left ventricle is normal in size. * There is no thrombus. * There is normal left ventricular wall thickness. * The left ventricle is hyperdynamic. * Ejection Fraction = >70 %. * The left ventricular wall motion is normal. Right Ventricle * The right ventricle is normal size. * The right ventricular systolic function is normal as assessed by tricuspid annular plane systolic excursion (TAPSE) (normal >1.5 cm). Atria * The left atrial size is normal. * Right atrial size is normal. * There is no evidence of atrial septal defect, but resolution does not allow assessment for a patent foramen ovale. Mitral Valve * There is moderate mitral annular calcification. * There is no mitral valve stenosis. * Significant mitral regurgitation is absent. Tricuspid Valve * The tricuspid valve is normal. * There is no tricuspid stenosis. * There is mild tricuspid regurgitation. * Doppler findings do not suggest pulmonary hypertension. Aortic Valve * The aortic valve is trileaflet. * Aortic valve sclerosis moderate, without significant aortic valvular stenosis. * Aortic stenosis is absent. * There is no significant aortic regurgitation. Pulmonic Valve * The pulmonary valve is not well seen, but the Doppler examination is normal without significant regurgitation or stenosis. Great Vessels * The aortic root is normal size. Pericardium/Pleural * There is no pericardial effusion. Great Vessels * Normal inferior vena cava diameter and respiratory variation suggests normal central venous pressure. Left Ventricular Diastolic Function * Grade I diastolic dysfunction, (abnormal relaxation pattern). MMode 2D Measurements and Calculations IVSd 0.86 cm IVSs 0.91 cm LVIDd 3.7 cm LVIDs 2.5 cm LVPWd 0.77 cm LVPWs 1.3 cm IVS/LVPW 1.1 FS 32.4 % EDV(Teich) 58.3 ml ESV(Teich) 22.4 ml EF(Teich) 61.5 % EDV(cubed) 50.9 ml ESV(cubed) 15.7 ml EF(cubed) 69.1 % % IVS thick 6.6 % % LVPW thick 69.8 % LV mass(C)d 84.2 grams LV mass(C)dI 51.3 grams/m\S\2 LV mass(C)s 75.1 grams LV mass(C)sI 45.7 grams/m\S\2 SV(Teich) 35.9 ml SI(Teich) 21.8 ml/m\S\2 SV(cubed) 35.1 ml SI(cubed) 21.4 ml/m\S\2 Ao root diam 2.7 cm Ao root area 5.8 cm\S\2 ACS 1.4 cm LA dimension 3.0 cm LA/Ao 1.1 LVAd ap4 19.6 cm\S\2 LVLd ap4 6.9 cm EDV(MOD-sp4) 47.0 ml EDV(sp4-el) 47.3 ml LVAs ap4 8.4 cm\S\2 LVLs ap4 5.4 cm ESV(MOD-sp4) 11.2 ml ESV(sp4-el) 11.0 ml EF(MOD-sp4) 76.2 % EF(sp4-el) 76.7 % LVAd ap2 23.4 cm\S\2 LVLd ap2 7.6 cm EDV(MOD-sp2) 59.7 ml EDV(sp2-el) 61.4 ml LVAs ap2 8.3 cm\S\2 LVLs ap2 4.8 cm ESV(MOD-sp2) 12.4 ml ESV(sp2-el) 12.3 ml EF(MOD-sp2) 79.2 % EF(sp2-el) 80.0 % LVLd %diff 8.8 % EDV(MOD-bp) 55.2 ml LVLs %diff -12.30 % ESV(MOD-bp) 12.5 ml EF(MOD-bp) 77.3 % SV(MOD-sp4) 35.8 ml SI(MOD-sp4) 21.8 ml/m\S\2 SV(MOD-sp2) 47.3 ml SI(MOD-sp2) 28.8 ml/m\S\2 SV(MOD-bp) 42.6 ml SI(MOD-bp) 26.0 ml/m\S\2 SV(sp4-el) 36.3 ml SI(sp4-el) 22.1 ml/m\S\2 SV(sp2-el) 49.1 ml SI(sp2-el) 29.9 ml/m\S\2 Doppler Measurements and Calculations MV E max gallo 97.5 cm/sec MV A max gallo 127.1 cm/sec MV E/A 0.77 MV dec time 0.25 sec Ao V2 max 176.5 cm/sec Ao max PG 12.5 mmHg Ao max PG (full) 5.8 mmHg LV V1 max PG 6.6 mmHg LV V1 max 128.5 cm/sec PA V2 max 97.0 cm/sec PA max PG 3.8 mmHg TR max gallo 238.3 cm/sec
[2016-09-23 16:09] VITALS: BP 115/68; PULSE 90; TEMP 37; O2SAT 93
--- NOTE | 2016-09-23 17:30 | Progress Note ---
Internal Med Progress Note Date of Service: Sep 23, 2016. Provider Documentation: SUBJECTIVE: The patient was seen and examined Feels better today Still has pain right lower chest OBJECTIVE: Vital Signs-as noted below Exam: General-NO distress at rest Eyes-Normal ENT-normal Neck-supple Lungs-decreased breath sound at the right base with minimal crackles Rash in the distribution of right T 10 dermatome Heart-Regular,no murmur appreciated Abdomen-Benign,no masses, Extremities-No edema Neuro-AA Lab data as noted below. 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 Experiencing severe pain. Appearance consistent with H zoster. Rx with valacyclovir. Pain management with gabapentin and other analgesics as necessary. Pain is reasonably controlled H/O Heart Murmur High-pitched systolic murmur precordial History of rheumatic fever. Check ECHO ::The left ventricle is hyperdynamic. * Ejection Fraction = >70 %. * Aortic valve sclerosis moderate, without significant aortic valvular stenosis. * There is mild tricuspid regurgitation. HISTORY COLON CA S/P resection. No acute symptoms MULTIPLE SCLEROSIS Remains relatively independent, but functional status may be compromised by recent fracture left foot, severe right chest wall pain, etc. Mobile with wheel chair PT / OT evals. ABNORMAL CT FINDINGS Multiple abnormalities noted on CT imaging as summarized above. Will need follow-up as clinically indicated. VTE PROPHYLAXIS No anticoagulants at this time due to pleural effusion and possible need for thoracentesis. SCDs Will start SQ Lovenox RESUSCITATION STATUS Level 1 DISPOSITION May need skilled care or rehab. Consult Tutoring Manager. Medical follow-up with Dr. May Novak. . Vital Signs: Date Time Temp Pulse Resp B/P Pulse Ox O2 Delivery O2 Flow Rate FiO2 09/23/16 16:09 37.0 90 18 115/68 93 Room Air 09/23/16 08:03 36.8 95 18 130/81 95 Room Air 09/23/16 08:00 Room Air 09/22/16 23:56 Room Air 09/22/16 23:00 37.1 83 18 123/75 94 Room Air Lab Results: Results Past 24 Hours Test 09/23/16 05:25 Range/Units White Blood Count 5.31 4.8-10.8 K/uL Red Blood Count 4.24 4.2-5.4 M/uL Hemoglobin 12.8 12.0-16.0 g/dL Hematocrit 37.4 37-47 % Mean Corpuscular Volume 88.2 80-100 fL Mean Corpuscular Hemoglobin 30.2 25-34 pg Mean Corpuscular Hemoglobin Concent 34.2 32-36 g/dl RDW Standard Deviation 46.1 36.4-46.3 fL RDW Coefficient of Variation 14.2 11.5-14.5 % Platelet Count 285 130-400 K/uL Mean Platelet Volume 9.3 7.4-10.4 fL Sodium Level 140 136-145 mmol/L Potassium Level 3.7 3.5-5.1 mmol/L Chloride Level 107 98-107 mmol/L Carbon Dioxide Level 25 21-32 mmol/L Anion Gap 8.0 3-11 mmol/L Blood Urea Nitrogen 14 7-18 mg/dl Creatinine 0.70 0.60-1.20 mg/dl Est Creatinine Clear Calc Drug Dose 52.8 ml/min Estimated GFR () 91.6 Estimated GFR (Non- 79.0 BUN/Creatinine Ratio 19.3 10-20 Random Glucose 91 70-99 mg/dl Calcium Level 8.8 8.5-10.1 mg/dl Phosphorus Level 2.4 2.5-4.9 mg/dl Magnesium Level 2.1 1.8-2.4 mg/dl
[2016-09-23] MEDS ORDERED: ENOXAPARIN 40 MG/0.4 ML SYR SQ ONE (18:00)
[2016-09-23 23:25] VITALS: BP 144/74; PULSE 107; TEMP 37.2; O2SAT 92
[2016-09-24 06:12] LABS: HEMATOCRIT 37.1 % (37-47); MEAN CELL VOLUME 88.5 fL (80-100); MEAN CORPUSCULAR HEMOGLOBIN 30.1 pg (25-34); MEAN PLATELET VOLUME 9.3 fL (7.4-10.4); PLATELET COUNT 267 K/uL (130-400); RED BLOOD COUNT 4.19 M/uL (4.2-5.4); WHITE BLOOD COUNT 5.16 K/uL (4.8-10.8)
[2016-09-24 06:49] LABS: CALCIUM 8.7 mg/dl (8.5-10.1); CREATININE 0.77 mg/dl (0.60-1.20); MAGNESIUM 2.1 mg/dl (1.8-2.4); POTASSIUM 3.6 mmol/L (3.5-5.1)
[2016-09-24 08:05] VITALS: BP 146/81; PULSE 85; TEMP 36.8; O2SAT 95
--- NOTE | 2016-09-24 08:47 | Surgery Progress Note ---
Subjective Date of Service: Sep 24, 2016. Pt. denies SOB this am. Objective Vitals Date Time Temp Pulse Resp B/P Pulse Ox O2 Delivery O2 Flow Rate FiO2 09/24/16 08:05 36.8 85 16 146/81 95 Room Air 09/23/16 23:25 37.2 107 18 144/74 92 Room Air 09/23/16 19:35 Room Air 09/23/16 16:09 37.0 90 18 115/68 93 Room Air 09/23/16 16:00 Room Air Physical Exam General: + well developed, + well nourished CV: + RRR Pulmonary: + pertinent finding (slight decrease at right base), No accessory muscle use, No respiratory distress Neurologic: + templer head II-XII intact, + alert & oriented x 3 Assessment & Plan 85 year old female with right pleural effusion -likely traumatic from fall and rib fractures -bedside US on 09/22/16 did not reveal enough fluid to warrant thoracentesis -will follow clinically -will see pt. in office 2 weeks after d/c with repeat CXR
[2016-09-24] MEDS: GABAPENTIN 300 MG CAP PO SCH ×2 (09:45→14:24)
[2016-09-24] MEDS: CITALOPRAM 20 MG TAB PO SCH (09:45)
[2016-09-24] MEDS: PANTOprazole SOD 40 MG TAB PO SCH (09:45)
[2016-09-24] MEDS ORDERED: VALA1TAB31 PO (13:05)
[2016-09-24] MEDS ORDERED: NRN300 PO (13:05)
[2016-09-24] MEDS ORDERED: RXC5 PO (13:05)
--- NOTE | 2016-09-24 13:09 | Discharge Instructions ---
Discharge Instructions Admission Reason for Admission: Pleural Effusion,Right Discharge Discharge Diagnosis / Problem: rt pleural ffusion,FALL AND RIB FRACTURES, herpes zoster Discharge Goals Goal(s): Decrease discomfort, Improve function Activity Recommendations Activity Level: Up Ad Leanne Therapies: Physical Therapy, Occupational Therapy . Additional Information Patient informed of condition: Yes Advance Directives: Yes DNR: No Level of Care: Acute Rehab Communicable Disease: No Prognosis: Stable Dan Catheter: No Instructions / Follow-Up Instructions / Follow-Up FOLLOWUP WITH FAMILY DOCTOR ONE WEEK ON DISCHARGE FOLLOWUP CT CHEST FOR LUNG NODULES PER FAMILY DOCTOR. FOLLOWUP WITH CT SURGERY FOR PLEURAL EFFUSION IN 2 WEEKS Current Hospital Diet Patient's current hospital diet: AHA Diet (Heart Healthy) Discharge Diet Recommended Diet: Regular Diet Pending Studies Studies pending at discharge: no Physician Orders On Transfer Special Precautions: FALL AND ASPIRATION PRECAUTIONS Vital Signs: EVERY 8HRS Medical Emergencies . Who to Call and When: Medical Emergencies: If at any time you feel your situation is an emergency, please call 911 immediately. . Non-Emergent Contact Non-Emergency issues call your: Primary Care Provider . . "Provider Documentation" section prepared by Heron Moraes. Core Measure Problem Core Measures: None
[2016-09-24 13:30] VITALS: BP 146/81; PULSE 85; TEMP 36.8; O2SAT 95
[2016-09-24 14:18] VITALS: BP 129/72
[2016-09-24 14:55] VITALS: BP 128/75; PULSE 83; TEMP 37; O2SAT 96
[2016-09-24] MEDS ORDERED: ENOXAPARIN 40 MG/0.4 ML SYR SQ SCH (18:00)
--- NOTE | 2016-09-24 19:17 | Progress Note ---
Internal Med Progress Note Date of Service: Sep 24, 2016. Provider Documentation: SUBJECTIVE: sitting on the chair comfortably and eating lunch felt dizzy earlier but improved now denies chest pain or sob afebrile ok for rehab today OBJECTIVE: Vital Signs-as noted below Exam: General-alert and oriented ENT-normal hearing Neck-no neck masses Lungs-cta b/l no wheezing or crackles Heart-s1 and s2 heard regular rate and rhythm no murmurs Abdomen-soft bowel sounds present non tender no distension skin rash seen on right lower back Extremities-no erythema Neuro-alert and awake moves extremities Lab data as noted below. ASSESSMENT & PLAN: Right sided chest pain with Right pleural effusion Recent fall but no evidence of rib fracture Has rash along the pain area -suggestive of HZ CT evidence of Effusion-traumatic,heart failure ,secondary to infection/ parapneumonic No antibiotic yet seen by ct surgery and no plan for thoracocentesis and wants to follow in 2weeks. PROBABLE H ZOSTER Rx with valacyclovir. Pain management with gabapentin and other analgesics as necessary. Pain is reasonably controlled H/O Heart Murmur High-pitched systolic murmur precordial History of rheumatic fever. Check ECHO ::The left ventricle is hyperdynamic. * Ejection Fraction = >70 %. * Aortic valve sclerosis moderate, without significant aortic valvular stenosis. * There is mild tricuspid regurgitation. HISTORY COLON CA S/P resection. No acute symptoms MULTIPLE SCLEROSIS Remains relatively independent, but functional status may be compromised by recent fracture left foot, severe right chest wall pain, etc. Mobile with wheel chair PT / OT evals. plan for rehab ABNORMAL CT FINDINGS Multiple abnormalities noted on CT imaging as summarized above. Will need follow-up with PCP Discharged to rehab Vital Signs: Date Time Temp Pulse Resp B/P Pulse Ox O2 Delivery O2 Flow Rate FiO2 09/24/16 14:55 37.0 83 18 128/75 96 Room Air 09/24/16 14:18 129/72 09/24/16 13:30 36.8 85 16 95 Room Air 09/24/16 08:05 36.8 85 16 146/81 95 Room Air 09/24/16 08:00 Room Air 09/23/16 23:25 37.2 107 18 144/74 92 Room Air 09/23/16 19:35 Room Air Lab Results: Results Past 24 Hours Test 09/24/16 05:35 Range/Units White Blood Count 5.16 4.8-10.8 K/uL Red Blood Count 4.19 4.2-5.4 M/uL Hemoglobin 12.6 12.0-16.0 g/dL Hematocrit 37.1 37-47 % Mean Corpuscular Volume 88.5 80-100 fL Mean Corpuscular Hemoglobin 30.1 25-34 pg Mean Corpuscular Hemoglobin Concent 34.0 32-36 g/dl RDW Standard Deviation 45.1 36.4-46.3 fL RDW Coefficient of Variation 14.0 11.5-14.5 % Platelet Count 267 130-400 K/uL Mean Platelet Volume 9.3 7.4-10.4 fL Sodium Level 141 136-145 mmol/L Potassium Level 3.6 3.5-5.1 mmol/L Chloride Level 107 98-107 mmol/L Carbon Dioxide Level 24 21-32 mmol/L Anion Gap 10.0 3-11 mmol/L Blood Urea Nitrogen 15 7-18 mg/dl Creatinine 0.77 0.60-1.20 mg/dl Est Creatinine Clear Calc Drug Dose 48.0 ml/min Estimated GFR () 81.6 Estimated GFR (Non- 70.4 BUN/Creatinine Ratio 20.0 10-20 Random Glucose 96 70-99 mg/dl Calcium Level 8.7 8.5-10.1 mg/dl Magnesium Level 2.1 1.8-2.4 mg/dl
--- NOTE | 2016-09-24 19:43 | Discharge Summary ---
Discharge Summary Admission Date: Sep 22, 2016 at 02:40 Discharge Date: Sep 24, 2016 Discharge Disposition: Rehab Principal Diagnosis: FALL RIB FRACTURES RT PLEURAL EFFUSION CHEST PAIN HERPES ZOSTER Secondary Diagnoses/Problems: (1) Benign hypertension Status: Chronic (4) Chronic back pain Status: Chronic (5) Gastroesophageal reflux disease Status: Chronic (6) History of cholelithiasis Status: Chronic (7) History of colon cancer Permanent Comment: diagnosed 2014, s/p resection Status: Chronic (8) History of pancreatitis Status: Chronic (9) Multiple sclerosis Status: Chronic Procedures: VENOUS DOPPLER: 1. Limited study with nonvisualization the right calf veins. No DVT identified. HEAD CT: No acute intracranial abnormality. Atrophy and microvascular ischemic changes. Improvement in the left maxillary sinus opacification. CHEST CT: 1. Manubrial fracture, possibly old. Please correlate with patient's site of pain 2. Small to moderate right pleural effusion 3. No evidence of pneumothorax. No evidence of pulmonary contusion 4. Multinodular thyroid gland 5. 23 mm cystic structure within the right axilla 6. Hiatal hernia 7. Hepatic and left renal cysts 8. 4 mm left upper lobe pulmonary nodule Please refer to below summary of Fleischner criteria recommendations for follow-up of incidental CT nodules (Mignon Patino, Guidelines for management of small pulmonary nodules detected on CT scans: A statement from the Fleischner Society, Radiology 237: [phone].) Low Risk Patient: Minimal or no smoking or other known risk factors for malignancy <=4 mm: No follow-up needed. >4-6 mm: Initial follow-up CT at 12 months; if unchanged, no further follow-up. >6-8 mm: Initial follow-up CT at 6-12 months then at 18-24 months if no change. >8 mm: Follow-up CT at \\R\\3, 9, 24 months, or PET and/or biopsy. High Risk Patient: History of smoking or other known risk factors <=4 mm: Follow-up at 12 months; if unchanged, no further follow-up. >4-6 mm: Initial follow-up CT at 6-12 months then at 18-24 months if no change. >6-8 mm: Initial follow-up CT at 3-6 months then at 9-12 and 24 months if no change. >8 mm: Same as low risk patient. Note: Nodule size measured as average of length and width. Ground glass or partly solid nodules may require longer follow-up to exclude indolent adenocarcinoma. CT ABD/PELVIS: 1. No acute intra-abdominal abnormality. 2. Hepatic and left renal cysts are again noted. 3. Cholecystectomy. 4. No bowel wall thickening or obstruction. 5. Small right pleural effusion. 6. Moderate hiatus hernia. ECHO:he left ventricle is hyperdynamic. * Ejection Fraction = >70 %. * Aortic valve sclerosis moderate, without significant aortic valvular stenosis. * There is mild tricuspid regurgitation. Consultations: CT SURGERY Medication Reconciliation New Medications: Valacyclovir Hcl (Valtrex) 1 Gm Tab 1 TAB PO TID for 5 Days, #15 TAB Gabapentin (Gabapentin) 300 Mg Cap 300 MG PO BID, #30 CAP 1 Refill Oxycodone HCl (Oxycodone HCl) 5 Mg Tab 5 MG PO Q4H PRN for severe pain, #30 TAB Continued Medications: Acetaminophen (Tylenol) 500 Mg Tab 2 TAB PO Q8H PRN for Pain, TAB Calcium (Calcium) 600 Mg Tab 600 MG PO QAM Citalopram Hydrobromide (Citalopram Hydrobromide) 10 Mg Tab 10 MG PO QAM, #30 Loratadine Odt (Claritin Reditab Odt) 10 Mg Tab 10 MG PO DAILY PRN for ALLERGIES, TAB Multivitamin (Multivitamin) Tab 1 TAB PO QAM, TAB Omeprazole (Prilosec) 40 Mg Cap 40 MG PO DAILYBB, #30 Ondansetron Hcl (Zofran) 4 Mg Tab 4 MG PO Q8H PRN for Nausea, #10 TAB Admission Information HPI (per Admitting provider): 85 YO female followed by Dr. May Novak. History of colon Ca, multiple sclerosis, and other problems noted below. Her about 6 months ago. She has been able to stay in her home despite her disabilities related to her MS. About 2 weeks she developed diarrhea, generalized weakness, and fell. She suffered right foot pain secondary to the fall and was evaluated in the ED. No other apparent injuries. X-rays of right foot and ankle did not show any fractures or dislocations. Seen in clinic on 09/17 for pain and swelling of her left foot. X-rays of left foot demonstrated fractures of the proximal phalanges of the 2nd and 3rd toes as well as fracture of the the metatarsal. Developed right-sided lower chest / upper abdominal pain after the fall, but it worsened several days ago. Also noted pain and swelling of her left foot. Chest pain worse with movement of deep inspirations; it did not radiate. Intensity of pain described as severe. She tried Tylenol at home without relief. [place] somewhat SOB. No associated fever or cough. Seen in clinic on 09/20; X-rays of ribs did not reveal any fractures. . Physical Exam (per Admitting): General Appearance: WD/WN, + moderate distress (with movement) Head: normocephalic, atraumatic Eyes: normal inspection, PERRL, EOMI, sclerae normal, + pertinent finding ( conjunctivae pink) ENT: normal ENT inspection, pharynx normal, + pertinent finding (hard of hearing) Neck: supple, no adenopathy, thyroid normal, no JVD, trachea midline Respiratory/Chest: normal breath sounds, no respiratory distress, no accessory muscle use, + decreased breath sounds (right base) Cardiovascular: regular rate, rhythm, no edema, no gallop, no JVD, + systolic murmur (high pitched systolic murmur III/ LSB - apex) Abdomen/GI: normal bowel sounds, non tender, soft, no organomegaly Back: normal inspection Extremities/Musculoskelatal: normal inspection, no calf tenderness, normal capillary refill, no pedal edema 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 (PERRL, EOMI), alert, normal mood /affect, oriented x 3, + motor weakness (bilateral lower extremity weakness ~ 3/ 5), + babinski (bilat) Skin: normal color, warm/dry, + rash (clustered palules extending from lower thoracic spine anterolaterally to right abdomen) Lymphatic: no adenopathy Physical Exam (per Admitting): General Appearance: WD/WN, + moderate distress (with movement) Head: normocephalic, atraumatic Eyes: normal inspection, PERRL, EOMI, sclerae normal, + pertinent finding ( conjunctivae pink) ENT: normal ENT inspection, pharynx normal, + pertinent finding (hard of hearing) Neck: supple, no adenopathy, thyroid normal, no JVD, trachea midline Respiratory/Chest: normal breath sounds, no respiratory distress, no accessory muscle use, + decreased breath sounds (right base) Cardiovascular: regular rate, rhythm, no edema, no gallop, no JVD, + systolic murmur (high pitched systolic murmur III/ LSB - apex) Abdomen/GI: normal bowel sounds, non tender, soft, no organomegaly Back: normal inspection Extremities/Musculoskelatal: normal inspection, no calf tenderness, normal capillary refill, no pedal edema 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 (PERRL, EOMI), alert, normal mood/ affect, oriented x 3, + motor weakness (bilateral lower extremity weakness ~ 3/5 ), + babinski (bilat) Skin: normal color, warm/dry, + rash (clustered palules extending from lower thoracic spine anterolaterally to right abdomen) Lymphatic: no adenopathy Hospital Course Right sided chest pain with Right pleural effusion Recent fall but no evidence of rib fracture Has rash along the pain area -suggestive of HZ CT evidence of Effusion-traumatic,heart failure ,secondary to infection/ parapneumonic No antibiotic yet seen by ct surgery and no plan for thoracocentesis and wants to follow in 2weeks. PROBABLE H ZOSTER Rx with valacyclovir. Pain management with gabapentin and other analgesics as necessary. Pain is reasonably controlled H/O Heart Murmur High-pitched systolic murmur precordial History of rheumatic fever. Check ECHO ::The left ventricle is hyperdynamic. * Ejection Fraction = >70 %. * Aortic valve sclerosis moderate, without significant aortic valvular stenosis. * There is mild tricuspid regurgitation. HISTORY COLON CA S/P resection. No acute symptoms MULTIPLE SCLEROSIS Remains relatively independent, but functional status may be compromised by recent fracture left foot, severe right chest wall pain, etc. Mobile with wheel chair PT / OT evals. plan for rehab ABNORMAL CT FINDINGS Multiple abnormalities noted on CT imaging as summarized above. Will need follow-up with PCP Discharged to rehab Total time spent on discharge = 40MINUTES This includes examination of the patient, discharge planning, medication reconciliation, and communication with other providers. Discharge Instructions Please take this sheet to every appointment for the next month Discharge Instructions Admission Reason for Admission: Pleural Effusion,Right Discharge Discharge Diagnosis / Problem: rt pleural ffusion,FALL AND RIB FRACTURES, herpes zoster Discharge Goals Goal(s): Decrease discomfort, Improve function Activity Recommendations Activity Level: Up Ad Leanne Therapies: Physical Therapy, Occupational Therapy . Additional Information Patient informed of condition: Yes Advance Directives: Yes DNR: No Level of Care: Acute Rehab Communicable Disease: No Prognosis: Stable Dan Catheter: No Instructions / Follow-Up Instructions / Follow-Up FOLLOWUP WITH FAMILY DOCTOR ONE WEEK ON DISCHARGE FOLLOWUP CT CHEST FOR LUNG NODULES PER FAMILY DOCTOR. FOLLOWUP WITH CT SURGERY FOR PLEURAL EFFUSION IN 2 WEEKS Current Hospital Diet Patient's current hospital diet: AHA Diet (Heart Healthy) Discharge Diet Recommended Diet: Regular Diet Pending Studies Studies pending at discharge: no Physician Orders On Transfer Special Precautions: FALL AND ASPIRATION PRECAUTIONS Vital Signs: EVERY 8HRS Medical Emergencies . Who to Call and When: Medical Emergencies: If at any time you feel your situation is an emergency, please call 911 immediately. . Non-Emergent Contact Non-Emergency issues call your: Primary Care Provider . . "Provider Documentation" section prepared by eHron Moraes. Core Measure Problem Core Measures: None
== END 2016-09-24 16:34 | DRG 188 ==
LOC: ENRESERVTM → CANRESERV → ENRESERVDT → C.EDB 21:18 → C.MSN 09-22 02:40 → UNDOADMIN 09-22 04:15
PROVIDERS: ADMIT Hospitalist; ATTEND Internal Medicine
DX: J90 Pleural effusion, not elsewhere classified (principal); G35 Multiple sclerosis; R91.1 Solitary pulmonary nodule; B02.9 Zoster without complications; Z91.81 History of falling; I10 Essential (primary) hypertension; K21.9 Gastro-esophageal reflux disease without esophagitis; S20.20XA Contusion of thorax, unspecified, initial encounter; S30.1XXA Contusion of abdominal wall, initial encounter; W19.XXXA Unspecified fall, initial encounter; Z85.038 Personal history of other malignant neoplasm of large intestine; Z90.49 Acquired absence of other specified parts of digestive tract; Z88.0 Allergy status to penicillin

== ENCOUNTER 2016-10-17 06:06 | Emergency (ER) | payer OTHER ==
[~2016-10-17] VITALS: Ht 167.6 cm; Wt 63.7 kg
[~2016-10-17 06:06] MED LIST changes: -BROM0.0911 OPR; +CALC600T37 PO; -CALCTAB5 PO; +CITA10TA4 PO; -CLX40 PO; +NRN300 PO; -OMEP40CA PO; +OMEP40CA41 PO; -PRED1SUS3 OPR; +RXC5 PO
[2016-10-17 06:12] VITALS: TEMP 37.1; Ht 167.6 cm; Wt 63.7 kg
--- NOTE | 2016-10-17 06:33 | EMERGENCY ROOM VISIT NOTE ---
History Report prepared by Carla: Eric Barriga Under the Supervision of: Dr. Zeke Mckinney M.D. First contact with patient: 06:23 Chief Complaint: ILLNESS Stated Complaint: PAIN/SHINGLES History of Present Illness The patient is an 85 year old female who presents to the Emergency Room via ambulance with complaints of resolved shaking beginning just prior to arrival. She currently rates her discomfort as an 8/10. The patient associates resolved diaphoresis and nausea with today's symptoms. She notes she woke up shaking this morning with the diaphoresis and nausea. The patient states she also has resolving shingles on her right flank. She notes she was recently discharged from [facility] for her shingles five days ago. 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 She states she lives alone, which prompted her to call for an ambulance this morning. The patient denies a fever, cough, pain with urination, and abdominal pain. Source of History: patient Onset: just prior to arrival Position: other (global) Symptom Intensity: 8/10 Quality: other (shakiness) Timing: resolved Associated Symptoms: + diaphoresis (resolved), + nausea, No abdominal pain, No cough, No fevers, No urinary symptoms Review of Systems All systems have been listed, reviewed, and are negative other than those previously mentioned. Please see Additional Medical History Sheet. Past Medical & Surgical Medical Problems: (1) Benign hypertension (2) Cholangitis (3) Choledocholithiasis (4) Chronic back pain (5) Gastroesophageal reflux disease (6) History of cholelithiasis (7) History of colon cancer (8) History of pancreatitis (9) Multiple sclerosis (10) Pancreatitis Surgical Problems: (1) Status post cholecystectomy (2) Status post partial resection of colon Family History FH: cancer SON (? primary) Social History Smoking Status: Never Smoker Drug Use: none Marital Status: Housing Status: lives alone Occupation Status: retired Current/Historical Medications Scheduled Calcium (Calcium), 600 MG PO QAM Citalopram Hydrobromide (Citalopram Hydrobromide), 10 MG PO QAM Gabapentin (Gabapentin), 300 MG PO BID Multivitamin (Multivitamin), 1 TAB PO QAM Omeprazole (Prilosec), 40 MG PO DAILYBB Sulfa/Trimethoprim (Bactrim Ds 800MG/160MG), 1 TAB PO BID Scheduled PRN Acetaminophen (Tylenol), 2 TAB PO Q8H PRN for Pain Loratadine Odt (Claritin Reditab Odt), 10 MG PO DAILY PRN for ALLERGIES Ondansetron Hcl (Zofran), 4 MG PO Q8H PRN for Nausea Oxycodone HCl (Oxycodone HCl), 5 MG PO Q4H PRN for severe pain Allergies Coded Allergies: Cat Dander (Unverified Allergy, Unknown, RUNNY NOSE; ITCHY, WATERY EYES, ) Penicillins (Unverified Allergy, Unknown, UNKNOWN, 10/17/16) Physical Exam Vital Signs Date Time Temp Pulse Resp B/P Pulse Ox O2 Delivery O2 Flow Rate FiO2 10/17/16 11:12 78 18 131/77 98 10/17/16 08:50 91 18 138/77 97 Room Air 10/17/16 06:12 37.1 99 20 155/102 96 Room Air Physical Exam GENERAL: Patient awake, alert, oriented x 3. Patient follows commands. Patient does not appear toxic. Patient is adequately hydrated and well- nourished. SKIN: Fading rash on the right lower flank. No erythema, pallor, or cyanosis, HEENT: Normal head, pupils equal, reactive to light and accommodation. Oral cavity and posterior pharynx appear normal. Neck: Without adenopathy, no neck vein distention. LUNGS: Clear to auscultation. No wheezes, no rales, no rhonchi. HEART: No murmurs. No gallops. No rubs ABDOMEN: No masses, no rebound, no hepatomegaly or splenomegaly. EXTREMITIES: No signs of trauma. No pedal or pretibial edema. No calf or thigh tenderness. NEUROLOGIC: Cranial nerves II-XII within normal limits. No gross motor sensory function deficits. Medical Decision & Procedures ER Provider Diagnostic Interpretation: X ray results are stated below per my interpretation and the radiologist's interpretation. CHEST 2 VIEWS ROUTINE CLINICAL HISTORY: shakes sweats dyspnea COMPARISON STUDY: 09/23/2016 FINDINGS: BI-RADS calcified angle unchanged. Lungs otherwise appear clear. IMPRESSION: Trace pleural effusion right base laterally. Otherwise unchanged exam Electronically signed by: Victor Manuel Baird M.D. 10/17/2016 7:21 AM Laboratory Results 10/17/16 06:48 Red Blood Count 4.42, Mean Corpuscular Volume 87.3, Mean Corpuscular Hemoglobin 30.5, Mean Corpuscular Hemoglobin Concent 35.0, Mean Platelet Volume 9.1, Neutrophils (%) (Auto) 72.3, Lymphocytes (%) (Auto) 14.2, Monocytes (%) (Auto) 11.8, Eosinophils (%) (Auto) 0.9, Basophils (%) (Auto) 0.3, Neutrophils # (Auto ) 4.70, Lymphocytes # (Auto) 0.92, Monocytes # (Auto) 0.77, Eosinophils # (Auto ) 0.06, Basophils # (Auto) 0.02 10/17/16 06:48 Test 10/17/16 06:48 10/17/16 07:31 White Blood Count 6.50 K/uL (4.8-10.8) Red Blood Count 4.42 M/uL (4.2-5.4) Hemoglobin 13.5 g/dL (12.0-16.0) Hematocrit 38.6 % (37-47) Mean Corpuscular Volume 87.3 fL (80-100) Mean Corpuscular Hemoglobin 30.5 pg (25-34) Mean Corpuscular Hemoglobin Concent 35.0 g/dl (32-36) Platelet Count 354 K/uL (130-400) Mean Platelet Volume 9.1 fL (7.4-10.4) Neutrophils (%) (Auto) 72.3 % Lymphocytes (%) (Auto) 14.2 % Monocytes (%) (Auto) 11.8 % Eosinophils (%) (Auto) 0.9 % Basophils (%) (Auto) 0.3 % Neutrophils # (Auto) 4.70 K/uL (1.4-6.5) Lymphocytes # (Auto) 0.92 K/uL (1.2-3.4) Monocytes # (Auto) 0.77 K/uL (0.11-0.59) Eosinophils # (Auto) 0.06 K/uL (0-0.5) Basophils # (Auto) 0.02 K/uL (0-0.2) RDW Standard Deviation 48.1 fL (36.4-46.3) RDW Coefficient of Variation 15.1 % (11.5-14.5) Immature Granulocyte % (Auto) 0.5 % Immature Granulocyte # (Auto) 0.03 K/uL (0.00-0.02) Anion Gap 9.0 mmol/L (3-11) Est Creatinine Clear Calc Drug Dose 51.3 ml/min Estimated GFR () 84.2 Estimated GFR (Non- 72.7 BUN/Creatinine Ratio 17.3 (10-20) Calcium Level 9.3 mg/dl (8.5-10.1) Total Bilirubin 0.6 mg/dl (0.2-1) Aspartate Amino Transf (AST/SGOT) 12 U/L (15-37) Alanine Aminotransferase (ALT/SGPT) 16 U/L (12-78) Alkaline Phosphatase 83 U/L (45-117) Total Protein 6.8 gm/dl (6.4-8.2) Albumin 3.3 gm/dl (3.4-5.0) Globulin 3.5 gm/dl (2.5-4.0) Albumin/Globulin Ratio 0.9 (0.9-2) Urine Color YELLOW Urine Appearance TURBID (CLEAR) Urine pH 8.5 (4.5-7.5) Urine Specific [place] 1.013 (1.000-1.030) Urine Protein NEG (NEG) Urine Glucose (UA) NEG (NEG) Urine Ketones NEG (NEG) Urine Occult Blood 1+ (NEG) Urine Nitrite POS (NEG) Urine Bilirubin NEG (NEG) Urine Urobilinogen NEG (NEG) Urine Leukocyte Esterase LARGE (NEG) Urine WBC (Auto) >30 /hpf (0-5) Urine RBC (Auto) 5-10 /hpf (0-4) Urine Hyaline Casts (Auto) /lpf (0-5) Urine Epithelial Cells (Auto) 5-10 /lpf (0-5) Urine Bacteria (Auto) 4+ (NEG) Urine Pathogenic Casts /lpf (0) Urine Yeast (Auto) (NONE PRSENT) Laboratory results as stated above per my review. Medications Administered Medications (Trade) Dose Ordered Sig/Elisabet Route Start Time Stop Time Status Last Admin Dose Admin Trimethoprim/ Sulfamethoxazole (Septra Ds 800/ 160MG Tab) 1 tab NOW STAT PO 10/17/16 08:29 10/17/16 08:30 DC 10/17/16 08:51 1 TAB ECG Indication: nausea Rate (beats per minute): 89 Rhythm: normal sinus Findings: no acute ischemic change, no ectopy ED Course 06: Past medical records reviewed. The patient was evaluated in room A10. A complete history and physical examination was performed. 08: Ordered Trimethoprim/Sulfamethoxazole 1 tab PO. 0830: Upon reevaluation, the patient appeared to have improvement of her symptoms. I discussed today's findings with her. She verbalized agreement of the treatment plan. The patient was discharged home. Medical Decision Nurses notes reviewed. Medical history sheet reviewed. Differential diagnosis includes but is not limited to: viral versus bacterial infection, metabolic disorder. Multiple labs, EKG, imaging were performed. Please see above. The patient does have a small pleural effusion but I do not believe this is related to her symptoms today. The patient's white count was not elevated. The patient does have a urinary tract infection. I believe this is the cause for her symptoms although she has been asymptomatic while here in the ED. The patient was started on Bactrim here and will continue that medication at home. She was encouraged to drink extra fluids. She will require follow-up by her family physician. Impression Primary Impression: Urinary tract infection Scribe Attestation The scribe's documentation has been prepared under my direction and personally reviewed by me in its entirety. I confirm that the note above accurately reflects all work, treatment, procedures, and medical decision making performed by me. Departure Information Dispostion Home / Self-Care Prescriptions Sulfa/Trimethoprim (Bactrim Ds 800MG/160MG) Tab 1 TAB PO BID, #19 TAB Prov: Zeke Mckinney M.D. 10/17/16 Referrals May Novak D.O. (PCP) Forms HOME CARE DOCUMENTATION FORM, IMPORTANT VISIT INFORMATION, WORK / SCHOOL INSTRUCTIONS Patient Instructions ED UTI Cystitis Female, My [facility] [place] [employer] Additional Instructions 1 Bactrim twice a day for 10 days. Drink extra fluids. Continue all of your current medications as prescribed. Follow-up with your family physician within the next 2 weeks.
[2016-10-17 07:05] LABS: BASO % 0.3 %; BASO ABS # 0.02 K/uL (0-0.2); COMPLETE YES; EOS % 0.9 %; HEMATOCRIT 38.6 % (37-47); IG% 0.5 %; LYMPH % 14.2 %; LYMPH ABS # 0.92 K/uL (1.2-3.4); MEAN CELL VOLUME 87.3 fL (80-100); MEAN CORPUSCULAR HEMOGLOBIN 30.5 pg (25-34); MEAN PLATELET VOLUME 9.1 fL (7.4-10.4); MONO % 11.8 %; NEUT % 72.3 %; PLATELET COUNT 354 K/uL (130-400); RED BLOOD COUNT 4.42 M/uL (4.2-5.4)
[2016-10-17 07:20] LABS: BUN/CREATININE RATIO 17.3 (10-20); CALCIUM 9.3 mg/dl (8.5-10.1); CREATININE 0.75 mg/dl (0.60-1.20); POTASSIUM 3.9 mmol/L (3.5-5.1)
[2016-10-17 07:22] LABS: ALB/GLOB RATIO 0.9 (0.9-2)
--- NOTE | 2016-10-17 07:22 | DIAGNOSTIC IMAGING REPORT ---
CHEST 2 VIEWS ROUTINE CLINICAL HISTORY: shakes sweats dyspnea COMPARISON STUDY: 09/23/2016 FINDINGS: BI-RADS calcified angle unchanged. Lungs otherwise appear clear. IMPRESSION: Trace pleural effusion right base laterally. Otherwise unchanged exam Electronically signed by: Victor Manuel Baird M.D. 10/17/2016 7:21 AM Dictated Date/Time: 10/17/2016 7:19 AM
[2016-10-17 07:51] LABS: URINE APPEARANCE TURBID (CLEAR); URINE BILIRUBIN NEG (NEG); URINE COLOR YELLOW; URINE NITRITE POS (NEG); URINE PH 8.5 (4.5-7.5); URINE SPECIFIC GRAVITY 1.013 (1.000-1.030); UROBILINOGEN NEG (NEG); ZZURINE CULT IF INDIC CATH YES
[2016-10-17 08:03] LABS: MANUAL MICROSCOPIC REQUIRED? NO; REVIEW REQ? YES
[2016-10-17] MEDS ORDERED: SULFAMETHOXAZOLE/TRIMETHOPRIM DS 800/160MG TAB PO STA (08:29)
[2016-10-17] MEDS ORDERED: SULF800T23 PO (08:36)
[2016-10-17 11:12] VITALS: BP 131/77; PULSE 78; O2SAT 98
--- NOTE | 2016-10-19 14:04 | Pharmacy Progress Note ---
ED Pharmacist Culture FollowUp Date of Service: Oct 19, 2016. Patient was sent home with a prescription for Bactrim, which should cover the Klebsiella pneumoniae growing from the patient's urine culture.
== END 2016-10-17 11:14 | disposition home or self-care (01) ==
LOC: EDBD 06:06 → C.EDA 06:07
DX: N39.0 Urinary tract infection, site not specified (principal); G35 Multiple sclerosis; I10 Essential (primary) hypertension; K21.9 Gastro-esophageal reflux disease without esophagitis; Z85.038 Personal history of other malignant neoplasm of large intestine; Z90.49 Acquired absence of other specified parts of digestive tract; Z79.899 Other long term (current) drug therapy; Z88.0 Allergy status to penicillin

== ENCOUNTER 2017-02-06 17:22 | Emergency (ER) | payer OTHER ==
[~2017-02-06 17:22] MED LIST changes: +SULF800T23 PO
[2017-02-06 17:32] VITALS: TEMP 36.7
[2017-02-06] MEDS ORDERED: XYLOCAINE 1%/SOD BICARB 20 ML VIAL INFIL ONE (17:45)
[2017-02-06] MEDS ORDERED: DIPHTHERIA/TETANUS/PERTUSSIS 0.5 ML SYR/VIAL IM. ONE (17:45)
--- NOTE | 2017-02-06 18:25 | EMERGENCY ROOM VISIT NOTE ---
ED Visit Note First contact with patient: 17:41 CHIEF COMPLAINT: Right lower Leg laceration HISTORY OF PRESENT ILLNESS: This 86-year-old female patient cut the leg right lower leg just prior to arrival when she hit it on a sharp piece of metal on her electric wheelchair as she was getting out of the shower. The bleeding stopped shortly after the injury and there is no foreign body sensation. The patient denies any foot or ankle pain. The patient is unsure of her tetanus status. She is not on any blood thinners. REVIEW OF SYSTEMS: 6 system review was performed and was negative unless stated otherwise in history of present illness. PMH: The patient is healthy; see chronic problem list SOCIAL HISTORY:. Non-smoker, no alcohol or drug use. PHYSICAL EXAM: Vital Signs: Were reviewed, blood pressure is 138/81. Reviewed Nurse's notes. There is a 6 cm long laceration on the anterior aspect of the leg. The edges are gaping apart. There is no foreign material in the wound and it looks clean. There is no active bleeding. No deep structures such as tendons or nerves are seen in the base of the wound. EMERGENCY DEPARTMENT COURSE: The patient was evaluated. Adacel was given. Wound Repair: Complexity: Basic. Verbal consent was obtained after the risks and benefits were explained, including but not limited to bleeding, scarring, infection, pain, and bone/joint /nerve damage. The skin was prepped with betadine and a sterile field set. The wound was anesthetized with 4.8 ml of 1% buffered lidocaine. With direct pressure the bleeding subsided. Copious irrigation was performed using sterile saline. The wound was explored for foreign bodies and none found. Debridement was not performed. The wound edges were approximated using 5-0 Ethilon with 9 simple interrupted sutures. Hemostasis and excellent approximation was achieved. Antibacterial ointment and a sterile dressing applied. Detailed wound care instructions and signs and symptoms of infection reviewed with the patient. No complications and the patient tolerated the procedure well. The patient was independently evaluated by Dr. Faulkner who agrees with treatment plan. The patient was discharged home in stable condition. DIAGNOSIS: 6 cm right lower Leg laceration DISCHARGE INSTRUCTIONS & TREATMENT: Keep wound clean and dry. No water on the area for 12-24 hrs then no soaking until sutures removed. Do not allow any crusting or dried blood to accumulate on sutures. If this occurs, use a 1:1 solution of hydrogen peroxide/water on a Q-tip to clean the wound. Use an antibiotic ointment for 3-4 days, then let wound dry. Suture removal in 10 days. Follow up sooner for any signs of infection (increasing redness, swelling , drainage). Ice and elevate for swelling and pain. Tylenol 650 mg every 6 hrs for pain. Problem List Medical Problems: (1) Benign hypertension Status: Chronic (2) Cholangitis Status: Resolved (3) Choledocholithiasis Status: Resolved (4) Chronic back pain Status: Chronic (5) Gastroesophageal reflux disease Status: Chronic (6) History of cholelithiasis Status: Chronic (7) History of colon cancer Permanent Comment: diagnosed 2014, s/p resection Status: Chronic (8) History of pancreatitis Status: Chronic (9) Multiple sclerosis Status: Chronic (10) Pancreatitis Status: Resolved Surgical Problems: (1) Status post cholecystectomy Status: Chronic (2) Status post partial resection of colon Permanent Comment: colon Ca, s/p resection 2014 Status: Chronic Current/Historical Medications Scheduled Calcium (Calcium), 600 MG PO QAM Citalopram Hydrobromide (Citalopram Hydrobromide), 10 MG PO QAM Gabapentin (Gabapentin), 300 MG PO BID Multivitamin (Multivitamin), 1 TAB PO QAM Omeprazole (Prilosec), 40 MG PO DAILYBB Sulfa/Trimethoprim (Bactrim Ds 800MG/160MG), 1 TAB PO BID Scheduled PRN Acetaminophen (Tylenol), 2 TAB PO Q8H PRN for Pain Loratadine Odt (Claritin Reditab Odt), 10 MG PO DAILY PRN for ALLERGIES Ondansetron Hcl (Zofran), 4 MG PO Q8H PRN for Nausea Oxycodone HCl (Oxycodone HCl), 5 MG PO Q4H PRN for severe pain Allergies Coded Allergies: Cat Dander (Unverified Allergy, Unknown, RUNNY NOSE; ITCHY, WATERY EYES, ) Penicillins (Unverified Allergy, Unknown, UNKNOWN, 10/17/16) Vital Signs Date Time Temp Pulse Resp B/P (MAP) Pulse Ox O2 Delivery O2 Flow Rate FiO2 02/06/17 17:32 36.7 96 20 138/81 95 Room Air Medications Administered Medications (Trade) Dose Ordered Sig/Elisabet Route Start Time Stop Time Status Last Admin Dose Admin Lidocaine HCl (Buffered Lidocaine 1% Inj) 20 ml NOW ONCE INFIL 02/06/17 17:45 02/06/17 17:46 DC 02/06/17 17:50 20 ML Diphtheria/ Pertussis/Tetanus Vacc (Adacel Inj) 0.5 ml ONCE ONCE IM. 02/06/17 17:45 02/06/17 17:46 DC 02/06/17 17:45 0.5 ML Departure Information Referrals May Novak D.OAnthony (PCP) Patient Instructions My [facility]
--- NOTE | 2017-02-06 18:31 | EMERGENCY ROOM VISIT NOTE ---
ED Visit Note First contact with patient: 17:41 I have personally evaluated and examined this patient. I agree with assessment and plan of Gaviota Baird PA-C.
[2017-02-06 18:43] VITALS: BP 157/99; PULSE 95; O2SAT 97
== END 2017-02-06 18:44 | disposition home or self-care (01) ==
LOC: C.EDB 17:23 → C.EDD 18:44
DX: S81.811A Laceration without foreign body, right lower leg, initial encounter (principal); W45.8XXA Other foreign body or object entering through skin, initial encounter; I10 Essential (primary) hypertension; K21.9 Gastro-esophageal reflux disease without esophagitis; Z23 Encounter for immunization

== ENCOUNTER 2017-02-15 10:29 | Emergency (ER) | payer OTHER ==
[~2017-02-15] VITALS: Ht 162.6 cm; Wt 78.0 kg
[2017-02-15 10:36] VITALS: TEMP 36.6; Ht 162.6 cm; Wt 78.0 kg
[2017-02-15] MEDS ORDERED: CEFTRIAXONE SOD INJ 1 GM ADDVIAL IV STA (11:25)
[2017-02-15 11:52] LABS: BASO % 0.3 %; BASO ABS # 0.02 K/uL (0-0.2); COMPLETE YES; EOS % 2.3 %; HEMATOCRIT 39.4 % (37-47); IG% 0.2 %; LYMPH % 16.6 %; MEAN CELL VOLUME 88.5 fL (80-100); MEAN CORPUSCULAR HEMOGLOBIN 30.8 pg (25-34); MEAN CORPUSCULAR HGB CONC 34.8 g/dl (32-36); MEAN PLATELET VOLUME 9.2 fL (7.4-10.4); MONO % 7.8 %; NEUT % 72.8 %; PLATELET COUNT 312 K/uL (130-400); RED BLOOD COUNT 4.45 M/uL (4.2-5.4); WHITE BLOOD COUNT 6.04 K/uL (4.8-10.8)
[2017-02-15 12:14] LABS: BUN/CREATININE RATIO 17.2 (10-20); CREATININE 0.77 mg/dl (0.60-1.20); POTASSIUM 3.9 mmol/L (3.5-5.1)
[2017-02-15] MEDS ORDERED: CEPH500C2 PO (12:22)
--- NOTE | 2017-02-15 12:23 | EMERGENCY ROOM VISIT NOTE ---
History First contact with patient: 10:55 Chief Complaint: SUTURE/STAPLE REMOVAL Stated Complaint: SUTURE REMOVAL Nursing Triage Summary: right lower leg sutures in place a week tuesday. History of Present Illness The patient is a 86 year old female who presents to the Emergency Room for suture removal of right lower leg laceration. The patient denies any fever or leg pain. Patient states that she has been following instructions. She does admit that her right lower leg is swollen as compared to her left. Review of Systems 6 system review was performed and was negative unless stated otherwise in history of present illness. Past Medical/Surgical History Medical Problems: (1) Benign hypertension (2) Cholangitis (3) Choledocholithiasis (4) Chronic back pain (5) Gastroesophageal reflux disease (6) History of cholelithiasis (7) History of colon cancer (8) History of pancreatitis (9) Multiple sclerosis (10) Pancreatitis Surgical Problems: (1) Status post cholecystectomy (2) Status post partial resection of colon Family History FH: cancer SON (? primary) Social History Smoking Status: Never Smoker Drug Use: none Marital Status: Housing Status: lives alone Occupation Status: retired Current/Historical Medications Scheduled Calcium (Calcium), 600 MG PO QAM Citalopram Hydrobromide (Citalopram Hydrobromide), 10 MG PO QAM Gabapentin (Gabapentin), 300 MG PO BID Multivitamin (Multivitamin), 1 TAB PO QAM Omeprazole (Prilosec), 40 MG PO DAILYBB Scheduled PRN Acetaminophen (Tylenol), 2 TAB PO Q8H PRN for Pain Loratadine Odt (Claritin Reditab Odt), 10 MG PO DAILY PRN for ALLERGIES Ondansetron Hcl (Zofran), 4 MG PO Q8H PRN for Nausea Allergies Coded Allergies: Cat Dander (Unverified Allergy, Unknown, RUNNY NOSE; ITCHY, WATERY EYES, ) Penicillins (Unverified Allergy, Unknown, UNKNOWN, 02/15/17) Physical Exam Vital Signs Date Time Temp Pulse Resp B/P (MAP) Pulse Ox O2 Delivery O2 Flow Rate FiO2 02/15/17 10:36 36.6 78 20 166/82 97 Room Air Physical Exam GENERAL: 86-year-old white female appears in no acute distress. MENTAL Status: Alert and oriented 3. NECK: Supple, no lymphadenopathy noted. No carotid bruits noted. LUNGS: Clear auscultation without wheezes rales or rhonchi. CARDIAC: Regular rate and rhythm without murmur. Pulses is full and equal throughout. RIGHT LOWER EXTREMITY: No gross bony deformity noted. There is a sutured laceration on the anterior aspect. There is no purulent drainage. There is some surrounding erythema and the patient has generalized edema of the lower leg. There is no streaking up the leg. Medical Decision & Procedures Laboratory Results 02/15/17 11:40 Red Blood Count 4.45, Mean Corpuscular Volume 88.5, Mean Corpuscular Hemoglobin 30.8, Mean Corpuscular Hemoglobin Concent 34.8, Mean Platelet Volume 9.2, Neutrophils (%) (Auto) 72.8, Lymphocytes (%) (Auto) 16.6, Monocytes (%) (Auto) 7.8, Eosinophils (%) (Auto) 2.3, Basophils (%) (Auto) 0.3, Neutrophils # (Auto) 4.40, Lymphocytes # (Auto) 1.00, Monocytes # (Auto) 0.47, Eosinophils # (Auto) 0.14, Basophils # (Auto) 0.02 02/15/17 11:40 Test 02/15/17 11:40 White Blood Count 6.04 K/uL (4.8-10.8) Red Blood Count 4.45 M/uL (4.2-5.4) Hemoglobin 13.7 g/dL (12.0-16.0) Hematocrit 39.4 % (37-47) Mean Corpuscular Volume 88.5 fL (80-100) Mean Corpuscular Hemoglobin 30.8 pg (25-34) Mean Corpuscular Hemoglobin Concent 34.8 g/dl (32-36) Platelet Count 312 K/uL (130-400) Mean Platelet Volume 9.2 fL (7.4-10.4) Neutrophils (%) (Auto) 72.8 % Lymphocytes (%) (Auto) 16.6 % Monocytes (%) (Auto) 7.8 % Eosinophils (%) (Auto) 2.3 % Basophils (%) (Auto) 0.3 % Neutrophils # (Auto) 4.40 K/uL (1.4-6.5) Lymphocytes # (Auto) 1.00 K/uL (1.2-3.4) Monocytes # (Auto) 0.47 K/uL (0.11-0.59) Eosinophils # (Auto) 0.14 K/uL (0-0.5) Basophils # (Auto) 0.02 K/uL (0-0.2) RDW Standard Deviation 46.1 fL (36.4-46.3) RDW Coefficient of Variation 14.1 % (11.5-14.5) Immature Granulocyte % (Auto) 0.2 % Immature Granulocyte # (Auto) 0.01 K/uL (0.00-0.02) Anion Gap 6.0 mmol/L (3-11) Est Creatinine Clear Calc Drug Dose 53.0 ml/min Estimated GFR () 81.0 Estimated GFR (Non- 69.9 BUN/Creatinine Ratio 17.2 (10-20) Calcium Level 9.0 mg/dl (8.5-10.1) Medications Administered Medications (Trade) Dose Ordered Sig/Elisabet Route Start Time Stop Time Status Last Admin Dose Admin Ceftriaxone Sodium (Rocephin Inj) 1 gm NOW STAT IV 02/15/17 11:25 02/15/17 11:28 DC 02/15/17 11:46 1 GM ED Course The patient was evaluated. The patient's EMR and medication list were reviewed. The patient's blood pressure was elevated while in the emergency room . The sutures were removed. IV access was obtained. The patient will be returning in 2 days for a recheck of the right lower leg at that time we will recheck her blood pressure. CBC and differential, renal profile was ordered. Labs are reviewed and were unremarkable. The patient was given Rocephin 1 g IV. The patient was independently evaluated by Dr. Faulkner who agrees with treatment plan. The patient was discharged home in stable condition. Medical Decision Differential diagnoses include peripheral edema versus cellulitis. Due to the patient's recent laceration this is cellulitis. Impression Primary Impression: Cellulitis of right lower leg Departure Information Dispostion Home / Self-Care Condition GOOD Prescriptions Cephalexin Monohydrate (KEFLEX) 500 Mg Cap 500 MG PO QID for 10 Days, #40 CAP Prov: Liza Baird PA-C 02/15/17 Referrals May Novak D.OAnthony (PCP) Forms HOME CARE DOCUMENTATION FORM, IMPORTANT VISIT INFORMATION Patient Instructions Cellulitis - [facility], My [facility] Additional Instructions Take Keflex as prescribed. Keep leg elevated whenever possible. Warm compresses to the affected area intermittently. Return to ER in 2 days for recheck of your right lower leg as well as we will recheck your blood pressure at that time. If you experience any high fevers, red streaking up the leg in the interim, return to ER.
[2017-02-15 12:46] VITALS: BP 174/92; PULSE 74; O2SAT 98
--- NOTE | 2017-02-15 19:19 | EMERGENCY ROOM VISIT NOTE ---
ED Visit Note First contact with patient: 10:55 I have personally evaluated and examined this patient. I agree with assessment and plan of Gaviota Baird PA-C. 86 yr old pleasant female with recent right graff laceration. Has some mild surrounding cellulitis. Sutures already removed and mild serous drainage from wound. Looks well without systemic symptoms. Abx seem reasonable though at this time I do not feel she requires inpatient treatment. Patient and family agree with this. Reviewed symptoms requiring RTED.
== END 2017-02-15 12:47 | disposition home or self-care (01) ==
LOC: C.EDB 10:30 → C.EDA 12:47
DX: L03.115 Cellulitis of right lower limb (principal); S81.811D Laceration without foreign body, right lower leg, subsequent encounter; X58.XXXD Exposure to other specified factors, subsequent encounter; I10 Essential (primary) hypertension; K21.9 Gastro-esophageal reflux disease without esophagitis

== ENCOUNTER 2017-02-17 13:34 | Emergency (ER) | payer OTHER ==
[~2017-02-17 13:34] MED LIST changes: +CEPH500C2 PO; -RXC5 PO; -SULF800T23 PO
[2017-02-17 13:50] VITALS: TEMP 36.8; Ht 165.1 cm
--- NOTE | 2017-02-17 14:31 | EMERGENCY ROOM VISIT NOTE ---
History Report prepared by Carla: Rosana Mcleod Under the Supervision of: Dr. Walter Morel M.D. First contact with patient: 14:03 Chief Complaint: WOUND RECHECK Stated Complaint: WOUND RECHECK Nursing Triage Summary: triage note: Pt reports " i was told to come back for my right leg to be checked, it is getting better." History of Present Illness The patient is an 86 year old female who presents to the Emergency Room with complaints of a persistent wound to her right graff for 12 days. The patient's neighbors reports that the patient injured her right graff a week and a half ago while getting out of the shower. The neighbors reports that the patient was evaluated in the emergency department on Tuesday to have her sutures removed. The neighbors states that the patient was given IV antibiotics and started on Keflex. They note that the patient was instructed to come back to the emergency department for a wound recheck. The patient reports right foot swelling, but denies any fever, chills, chest pain, shortness of breath, numbness or weakness. The patient's neighbors notes that the patient has a history of MS and is in a wheelchair chronically. The patient states that her tetanus is up to date. She states that she has noticed increased swelling to her the posterior aspect of her leg. The patient additionally notes that her right lower extremity feels colder than her left. Source of History: patient, other (neighbors) Onset: 12 days Position: other (right graff) Quality: other (wound) Timing: other (persistent) Associated Symptoms: No fevers, No chills, No chest pain, No SOB, No weakness, No numbness Note: Associated Symptoms: right foot swelling. Review of Systems See HPI for pertinent positives & negatives. A total of 10 systems reviewed and were otherwise negative. Past Medical & Surgical Medical Problems: (1) Benign hypertension (2) Cholangitis (3) Choledocholithiasis (4) Chronic back pain (5) Gastroesophageal reflux disease (6) History of cholelithiasis (7) History of colon cancer (8) History of pancreatitis (9) Multiple sclerosis (10) Pancreatitis Surgical Problems: (1) Status post cholecystectomy (2) Status post partial resection of colon Old medical records were reviewed. Nurse's notes were reviewed and I agree with. Family History FH: cancer SON (? primary) Social History Smoking Status: Never Smoker Drug Use: none Marital Status: Housing Status: lives alone Occupation Status: retired Current/Historical Medications Scheduled Calcium (Calcium), 600 MG PO QAM Cephalexin Monohydrate (Keflex), 500 MG PO QID Citalopram Hydrobromide (Citalopram Hydrobromide), 10 MG PO QAM Gabapentin (Gabapentin), 300 MG PO BID Multivitamin (Multivitamin), 1 TAB PO QAM Omeprazole (Prilosec), 40 MG PO DAILYBB Scheduled PRN Acetaminophen (Tylenol), 2 TAB PO Q8H PRN for Pain Loratadine Odt (Claritin Reditab Odt), 10 MG PO DAILY PRN for ALLERGIES Ondansetron Hcl (Zofran), 4 MG PO Q8H PRN for Nausea Allergies Coded Allergies: Cat Dander (Unverified Allergy, Unknown, RUNNY NOSE; ITCHY, WATERY EYES, ) Penicillins (Unverified Allergy, Unknown, UNKNOWN, 02/15/17) Physical Exam Vital Signs Date Time Temp Pulse Resp B/P (MAP) Pulse Ox O2 Delivery O2 Flow Rate FiO2 02/17/17 16:57 78 16 184/88 99 02/17/17 13:50 36.8 84 18 137/73 96 Room Air Physical Exam General: Well developed well nourished, non-ill appearing older female in no acute distress, breathing comfortably on room air. Normal speech HEENT: Normal cephalic atraumatic. Pupils are equal round and reactive to light. Extraocular movements are intact. Oropharynx is pink with moist mucous membranes. No swelling of the mouth lips or tongue. Neck: Supple with a midline trachea. No meningeal signs or stiffness, no JVD or bruits. No Stridor. Chest: Clear to auscultation bilaterally. No wheezes or rhonchi. No increased work of breathing. Heart: regular rate and rhythm. Abdomen: Soft nontender, nondistended without rebound guarding or rigidity. Extremities: Well healing laceration to eh right graff, no cellulitis, some asymmetrical swelling to right leg, right foot has normal motor and sensation, but has possible difference in temperature. No cyanosis clubbing. Spine/Back. Non tender to palpation. No CVA tenderness Skin: Good turgor without rashes. Neurologic exam: Cranial nerves two through 12 are intact. Motor and sensation are intact and symmetrical throughout. Medical Decision & Procedures ER Provider Diagnostic Interpretation: Radiology results as stated below per my review and radiologist interpretation: ULTRASOUND RIGHT VENOUS DOPP LOWER EXT UNILAT CLINICAL HISTORY: Right leg pain and swelling COMPARISON STUDY: No previous studies for comparison. FINDINGS: Real-time and color flow Doppler imaging were performed. Flow was seen within the femoral, popliteal and calf veins with no intraluminal thrombus demonstrated. The saphenous vein is patent. IMPRESSION: No evidence of right lower extremity DVT. Electronically signed by: Nahun Crum M.D. 02/17/2017 4:31 PM Dictated Date/Time: 02/17/2017 4:30 PM ULTRASOUND RIGHT LOWER EXTREMITY ARTERIAL; ANKLE-BRACHIAL INDICES CLINICAL HISTORY: Lower extremity wound. COMPARISON STUDY: No priors. TECHNIQUE: Real-time, grayscale, and color Doppler sonography of the arteries of the right lower extremities performed from the inguinal crease to the foot. Ankle brachial indices R cyst in the right lower extremities. FINDINGS: Ankle-brachial indices: Right brachial pressure measures 193 and left brachial pressure measures 182. Pressures in the right posterior tibial artery measure 193 for an YURIDIA of 1.00, and pressures in the right dorsalis pedis artery measure 167 for an BI of 0.7. Right lower extremity: There is only minimal atherosclerotic plaque and irregularity seen throughout the arteries of the right lower extremity. There are triphasic arterial waveforms in the right common femoral artery with velocities measuring up to 73 cm/s. The right profunda femoris artery is patent with velocities measuring up to 67 cm/s. There are triphasic waveforms seen throughout the right superficial femoral artery with velocities measuring up to 115 cm/s. There are triphasic waveforms seen int he right popliteal artery with velocities measuring up to 76 cm/s. There is three-vessel runoff to the foot. Velocities in the right posterior tibial artery measure 65 cm/s, velocities in the right peroneal artery measure up to 60 cm/s, velocities in the right anterior tibial artery measure up to 42 cm second. There are biphasic to monophasic waveforms seen in the calf. The dorsalis pedis artery is patent with velocities measuring up to 34 cm/s IMPRESSION: 1. There is no sonographic evidence of high-grade stenosis or focal vessel out off seen throughout the arteries of the right lower extremity. 2. Biphasic to monophasic arterial waveforms in the right calf are consistent with peripheral vascular disease. 3. Ankle brachial indices in the right lower extremity as above. ED Course 1412: Past medical records reviewed. The patient was evaluated in room B3B, and a complete history and physical examination were performed. 1613: I went to reevaluate the patient and she was still at ultrasound. 1646: I reevaluated the patient and she is resting comfortably. 1725: I reevaluated the patient and she is doing well. I discussed all the exam findings with her and I discussed the treatment plan. She verbalized complete understanding and agreement. She is ready to go home. Medical Decision Differentials include, but are not limited to; DVT, arterial compromise, cellulitis. Medication Reconciliation: I attest that I have personally reviewed the patient' s current medication list. Blood pressure Screening: Patient was found to have normal blood pressure on screening and does not require follow-up. This patient comes in as described above. She was placed room B3. She is here for wound recheck she has a laceration of her chin which is doing much better after receiving antibiotics on Tuesday she's had no fever or systemic complaints she is also swelling of the right leg compared to the left. On exam , the color and temperature slightly different on the right compared to the left although some of this sounds like is chronic she said ever since she had surgery years ago there are different temperatures. She has no other complaints. She is afebrile and has no systemic complaints I think the wound is healing well and there is no evidence of significant cellulitis or abscess. At this point , I do not think she needs repeat lab work. I did an ultrasound and there is no evidence of DVT. I also did arterial ultrasound is no evidence of significant arterial compromise. She was discharged home. She should continue the antibiotic . She should return if : increasing pain or swelling, redness or warmth, any new problems or concerns. She is happy with plan and discharged to home. Impression Primary Impression: Edema of right lower extremity Additional Impression: Healing laceration Scribe Attestation The scribe's documentation has been prepared under my direction and personally reviewed by me in its entirety. I confirm that the note above accurately reflects all work, treatment, procedures, and medical decision making performed by me. Departure Information Dispostion Home / Self-Care Referrals No Doctor, Assigned (PCP) Forms HOME CARE DOCUMENTATION FORM, IMPORTANT VISIT INFORMATION, WORK / SCHOOL INSTRUCTIONS Patient Instructions My [facility] Additional Instructions Rest. Elevate. Continue antibiotics. Return if: Increasing pain or swelling, redness or warmth or drainage, any new problems or concerns. Follow-up with your doctor for recheck early next week. Problem Qualifiers
--- NOTE | 2017-02-17 16:32 | DIAGNOSTIC IMAGING REPORT ---
ULTRASOUND RIGHT VENOUS DOPP LOWER EXT UNILAT CLINICAL HISTORY: Right leg pain and swelling COMPARISON STUDY: No previous studies for comparison. FINDINGS: Real-time and color flow Doppler imaging were performed. Flow was seen within the femoral, popliteal and calf veins with no intraluminal thrombus demonstrated. The saphenous vein is patent. IMPRESSION: No evidence of right lower extremity DVT. Electronically signed by: Nahun Crum M.D. 02/17/2017 4:31 PM Dictated Date/Time: 02/17/2017 4:30 PM
[2017-02-17 16:57] VITALS: BP 184/88; PULSE 78; O2SAT 99
--- NOTE | 2017-02-17 17:26 | DIAGNOSTIC IMAGING REPORT ---
ULTRASOUND RIGHT LOWER EXTREMITY ARTERIAL; ANKLE-BRACHIAL INDICES CLINICAL HISTORY: Lower extremity wound. COMPARISON STUDY: No priors. TECHNIQUE: Real-time, grayscale, and color Doppler sonography of the arteries of the right lower extremity is performed from the inguinal crease to the foot. Ankle brachial indices are assessed in the right lower extremity. FINDINGS: Ankle-brachial indices: Right brachial pressure measures 193 and left brachial pressure measures 182. Pressures in the right posterior tibial artery measure 193 for an YURIDIA of 1.00, and pressures in the right dorsalis pedis artery measure 167 for an YURIDIA of 0.87. Right lower extremity: There is only minimal atherosclerotic plaque and irregularity seen throughout the arteries of the right lower extremity. There are triphasic arterial waveforms in the right common femoral artery with velocities measuring up to 73 cm/s. The right profunda femoris artery is patent with velocities measuring up to 67 cm/s. There are triphasic waveforms seen throughout the right superficial femoral artery with velocities measuring up to 115 cm/s. There are triphasic waveforms seen in the right popliteal artery with velocities measuring up to 76 cm/s. There is three-vessel runoff to the foot. Velocities in the right posterior tibial artery measure up to 65 cm/s, velocities in the right peroneal artery measure up to 60 cm/s, velocities in the right anterior tibial artery measure up to 42 cm/s. There are biphasic to monophasic waveforms seen in the calf. The dorsalis pedis artery is patent with velocities measuring up to 34 cm/s. IMPRESSION: 1. There is no sonographic evidence of high-grade stenosis or focal vessel cut off seen throughout the arteries of the right lower extremity. 2. Biphasic to monophasic arterial waveforms in the right calf are consistent with peripheral vascular disease. 3. Ankle brachial indices in the right lower extremity as above. Dictated: 02/17/2017 4:37 PM Transcribed: 02/17/2017 5:26 PM [facility] Electronically signed by: Dat Okeefe M.D. 02/17/2017 5:30 PM Dictated Date/Time: 02/17/2017 4:37 PM
== END 2017-02-17 17:25 | disposition home or self-care (01) ==
LOC: C.EDB 13:36
DX: Z09 Encounter for follow-up examination after completed treatment for conditions other than malignant neoplasm (principal); R60.9 Edema, unspecified; S81.819A Laceration without foreign body, unspecified lower leg, initial encounter; X58.XXXA Exposure to other specified factors, initial encounter; I10 Essential (primary) hypertension; K21.9 Gastro-esophageal reflux disease without esophagitis; G89.29 Other chronic pain; K86.1 Other chronic pancreatitis; G35 Multiple sclerosis; Z85.038 Personal history of other malignant neoplasm of large intestine; Z90.49 Acquired absence of other specified parts of digestive tract; Z98.890 Other specified postprocedural states; Z79.899 Other long term (current) drug therapy; Z88.0 Allergy status to penicillin; Z91.09 Other allergy status, other than to drugs and biological substances; Z80.9 Family history of malignant neoplasm, unspecified